=== PATIENT | female | born 1935 | race Caucasian/White ===

== ENCOUNTER 2017-08-14 11:54 | Emergency (ER) | payer MEDICARE, OTHER ==
--- NOTE | 2017-08-14 12:30 | ED Physician Documentation ---
PD HPI CHEST PAIN - Stated complaint Stated Complaint: CHEST PX/SOA - Chief complaint Chief Complaint: Cardiac - History obtained from History obtained from: Patient, Family - History of Present Illness Timing - onset: How many weeks ago (2) Timing - onset during: Rest Timing - duration: Weeks (2) Timing - details: Gradual onset, Still present, Waxing and waning Quality: Pressure, Tightness Location: Substernal Radiation: Back Improved by: Rest Worsened by: Inspiration, Movement, Palpation Associated symptoms: General Weakness, Cough. No: Shortness of air, Diaphoresis , Nausea, Vomiting, Feeling faint / dizzy, Palpitations Similar symptoms before: Has not had sx before Recently seen: Not recently seen - Additional information Additional information: 82-year-old female began to have some signs and symptoms Of chest wall pain radiating to her back about 2 weeks ago she states that the pain is worse in the morning when she wakes up and when she is up and moving around her pain improves a bit. She wakes up in the morning with muscle stiffness. In the evening she does not have stiffness. She takes her statin before she goes to bed and she is stiff when she wakes up in the morning. She has had an increase in her cough but she has not had an increase in the amount of type of phlegm that she is coughing up and she has not had fever chills sweats nausea vomiting or lightheadedness. Review of Systems Constitutional: reports: Myalgias, Fatigue. denies: Fever, Chills Eyes: denies: Decreased vision Ears: denies: Ear pain Nose: denies: Rhinorrhea / runny nose, Congestion Throat: denies: Sore throat Cardiac: reports: Chest pain / pressure. denies: Palpitations, Pedal edema, Calf pain Respiratory: reports: Dyspnea. denies: Cough GI: denies: Abdominal Pain, Nausea, Vomiting : denies: Dysuria, Frequency Skin: denies: Rash Musculoskeletal: reports: Back pain. denies: Neck pain, Extremity pain, Joint pain Neurologic: reports: Generalized weakness. denies: Focal weakness, Numbness PD PAST MEDICAL HISTORY - Present Medications Home Medications: Ambulatory Orders Medication Instructions Recorded Confirmed Atorvastatin [Lipitor] 40 mg PO DAILY 08/14/17 08/14/17 Metoprolol Succinate [Toprol Xl] 12.5 mg PO BID 08/14/17 08/14/17 - Allergies Allergies/Adverse Reactions: Allergies Allergy/AdvReac Type Severity Reaction Status Date / Time No Known Drug Allergies Allergy Verified 08/14/17 12:04 PD ED PE NORMAL - Vitals Vital signs reviewed: Yes (hypertensive) - General General: No acute distress, Well developed/nourished - HEENT HEENT: Atraumatic, PERRL, EOMI, Ears normal, Moist mucous membranes, Pharynx benign, Dentition benign - Neck Neck: Supple, no meningeal sign, No bony TTP - Cardiac Cardiac: RRR, No murmur - Respiratory Respiratory: No respiratory distress, Clear bilaterally, Other (Mild point tenderness to the anterior chest wall no specific tenderness of the posterior chest wall.) - Abdomen Abdomen: Soft, Non tender - Back Back: No CVA TTP, No spinal TTP - Derm Derm: Normal color, Warm and dry, No rash - Extremities Extremities: No deformity, No edema - Neuro Neuro: Alert and oriented X 3, drill presser 2-12 intact, No motor deficit, No sensory deficit, Normal speech - Psych Psych: Normal mood, Normal affect Results - Vitals Vitals: Vital Signs - 24 hr 08/14/17 08/14/17 08/14/17 11:57 12:00 13:30 Heart Rate 70 63 Respiratory 24 12 Rate Blood Pressure 165/62 H Blood Pressure 165/62 H [Left] Blood Pressure 165/72 H [Right] O2 Saturation 100 08/14/17 08/14/17 13:31 14:03 Heart Rate 60 66 Respiratory 20 17 Rate Blood Pressure 118/62 165/72 H Blood Pressure [Left] Blood Pressure [Right] O2 Saturation 97 97 Oxygen O2 Source Room air - EKG (time done) 1208 Rhythm: LAE Ischemia: Other (minimal ST elevation inferior. <0.05m V) Compare to prior EKG: Old EKG unavailable Computer interpretation: Agree with computer - Labs Labs: Laboratory Tests 08/14/17 08/14/17 08/14/17 12:45 13:00 13:00 WBC 6.0 RBC 4.02 L Hgb 13.0 Hct 38.0 MCV 94.5 MCH 32.5 H MCHC 34.4 RDW 13.4 Plt Count 229 MPV 7.4 L Neut # 3.9 Lymph # 1.1 L Curry # 0.8 Eos # 0.2 Baso # 0.1 Absolute Nucleated RBC 0.00 Nucleated RBC % 0.1 Sodium 135 Potassium 4.4 Chloride 94 L Carbon Dioxide 30 Anion Gap 11.0 BUN 12 Creatinine 0.7 Estimated GFR (MDRD) 80 L Glucose 87 Calcium 9.6 Total Bilirubin 0.5 AST 27 ALT 17 Alkaline Phosphatase 78 Total Creatine Kinase 54 CK-MB (CK-2) Troponin I Total Protein 7.7 Albumin 4.1 Globulin 3.6 Albumin/Globulin Ratio 1.1 Lipase 35 Urine Color YELLOW Urine Clarity CLEAR Urine pH 7.0 Ur Specific [place] 1.010 Urine Protein NEGATIVE Urine Glucose (UA) NEGATIVE Urine Ketones NEGATIVE Urine Occult Blood NEGATIVE Urine Nitrite NEGATIVE Urine Bilirubin NEGATIVE Urine Urobilinogen 0.2 (NORMAL) Ur Leukocyte Esterase NEGATIVE Ur Microscopic Review NOT INDICATED Urine Culture Comments NOT INDICATED 08/14/17 13:00 WBC RBC Hgb Hct MCV MCH MCHC RDW Plt Count MPV Neut # Lymph # Curry # Eos # Baso # Absolute Nucleated RBC Nucleated RBC % Sodium Potassium Chloride Carbon Dioxide Anion Gap BUN Creatinine Estimated GFR (MDRD) Glucose Calcium Total Bilirubin AST ALT Alkaline Phosphatase Total Creatine Kinase CK-MB (CK-2) 0.9 Troponin I < 0.04 Total Protein Albumin Globulin Albumin/Globulin Ratio Lipase Urine Color Urine Clarity Urine pH Ur Specific [place] Urine Protein Urine Glucose (UA) Urine Ketones Urine Occult Blood Urine Nitrite Urine Bilirubin Urine Urobilinogen Ur Leukocyte Esterase Ur Microscopic Review Urine Culture Comments - Rads (name of study) 2 view chest Radiology: Prelim report reviewed (Impression: No acute cardiopulmonary abnormality.), EMP read indepedently, See rad report Procedures - IVC sono (time) 1228 Bedside IVC sono: IVC measures (cm) (1.2), IVC collapsed c insp (cm) (complete) , Dehydration (mild) PD MEDICAL DECISION MAKING - ED course Complexity details: reviewed results, re-evaluated patient, considered differential, d/w patient, d/w family ED course: 82-year-old female with 2 weeks of chest wall pain and a sensation that is difficult for her to get a full deep breath. She has a history of hypercholesterolemia and has been on a statin for years. She has had to go off of a statin that she was on previously for leg cramping. She has been on this statin (lipitor) for about 1 year. Here in the emergency department her studies are normal she has normal CPK and normal troponin normal-appearing chest x-ray and she does not benefit much from the use of nebulized albuterol and ipratropium.I discussed the findings with the patient and have asked her to stop her Lipitor. Departure - Departure Disposition: 01 Home, Self Care Clinical Impression: Statin myopathy Condition: Stable Instructions: ED Weakness UKO Follow-Up: Braden Silva MD [Primary Care Provider] - Comments: Today studies of your heart were without evidence of a heart attack. We did find you are mildly dehydrated and we gave you some IV hydration. I am concerned that the findings of your pain in your back and chest and your general weakness are related to your statin. Stop taking your Lipitor for now and follow-up with your primary care doctor.
[2017-08-14] MEDS ORDERED: DEXAMETHASONE 10 MG/ML VIAL IVP STA (12:34)
[2017-08-14] MEDS ORDERED: SODIUM CHLORIDE 0.9% 1,000 ML IV ONE (12:34)
[2017-08-14] MEDS ORDERED: IPRATROPIUM/ALBUTEROL 3 ML NEB INH STA (12:35)
[2017-08-14] MEDS ORDERED: SODIUM CHLORIDE FLUSH 0.9% 10 ML SYRINGE IVP ONE (12:46)
[2017-08-14] MEDS ORDERED: DEXAMETHASONE 10 MG/ML VIAL ONE (12:48)
[2017-08-14 13:12] LABS: BASOPHILS # (AUTO) 0.1 10^3/uL (0.0-0.1); BASOPHILS % (AUTO) 1.2 %; EOSINOPHILS # (AUTO) 0.2 10^3/uL (0.0-0.7); EOSINOPHILS % (AUTO) 3.3 %; LYMPHOCYTES # (AUTO) 1.1 10^3/uL (1.5-3.5); LYMPHOCYTES % (AUTO) 17.7 %; MEAN CORPUSCULAR HEMOGLOBIN 32.5 pg (27.0-31.0); MEAN CORPUSCULAR HGB CONC 34.4 g/dL (32.0-36.0); MEAN CORPUSCULAR VOLUME 94.5 fL (81.0-99.0); MEAN PLATELET VOLUME 7.4 fL (7.9-10.8); MONOCYTES # (AUTO) 0.8 10^3/uL (0.0-1.0); MONOCYTES % (AUTO) 12.7 %; NEUTROPHILS # (AUTO) 3.9 10^3/uL (1.5-6.6); NEUTROPHILS % (AUTO) 65.1 %; NUCLEATED RED BLOOD CELLS AUTO 0.1 /100WBC; RED BLOOD COUNT 4.02 10^6/uL (4.20-5.40); RED CELL DISTRIBUTION WIDTH 13.4 % (12.0-15.0)
[2017-08-14 13:18] LABS: ALBUMIN/GLOBULIN RATIO 1.1 (1.0-2.2); BILIRUBIN,TOTAL 0.5 mg/dL (0.2-1.0); CALCIUM 9.6 mg/dL (8.5-10.3); CREATININE 0.7 mg/dL (0.4-1.0); POTASSIUM 4.4 mmol/L (3.5-5.0); TOTAL PROTEIN 7.7 g/dL (6.7-8.2)
[2017-08-14 13:22] LABS: BILIRUBIN,URINE NEGATIVE (NEGATIVE)
[2017-08-14 13:23] LABS: UA CHARGE (STRIP ONLY) YES; UR CULTURE IF IND NOT INDICATED
[2017-08-14 13:24] LABS: CREATINE KINASE MB 0.9 ng/mL (0.6-6.3); TROPONIN I < 0.04 ng/mL (<0.49)
--- NOTE | 2017-08-14 13:36 | XRAY Preliminary Report ---
Exam: XR CHEST 2 VIEW PA/LAT IMPRESSION: No acute cardiopulmonary abnormality. [facility] SITE ID: [id number]
--- NOTE | 2017-08-14 13:39 | XRAY Report ---
EXAM: CHEST RADIOGRAPHY EXAM DATE: 08/14/2017 01:13 PM. CLINICAL HISTORY: Chest pain soa. COMPARISON: 10/15/2010. TECHNIQUE: 2 views. FINDINGS: Lungs/Pleura: No focal opacities evident. No pleural effusion. No pneumothorax. Normal volumes. Mediastinum: The heart size is normal. There is mild aortic atherosclerosis and tortuosity of the aor ta. Other: There is an old mild wedging deformity at T10. Unchanged. IMPRESSION: No acute cardiopulmonary abnormality. [facility] Referring Provider Line: [phone] SITE ID: [id number]
[2017-08-14] MEDS ORDERED: IPRATROPIUM/ALBUTEROL 3 ML NEB INH ONE (13:40)
[2017-08-14 14:04] VITALS: BP 165/72
== END 2017-08-14 14:12 | disposition home or self-care (01) ==
LOC: ED 11:54
DX: G72.0 Drug-induced myopathy (principal); T46.6X5A Adverse effect of antihyperlipidemic and antiarteriosclerotic drugs, initial encounter; E86.0 Dehydration; R07.89 Other chest pain; E78.00 Pure hypercholesterolemia, unspecified
CPT/HCPCS: 36415; 71020; 80053; 81003; 82550; 82553; 83690; 84484; 85025; 93005; 94640; 99284; J7620; 81001; 87086

== ENCOUNTER 2017-08-24 15:20 | Outpatient (CLI) | payer MEDICARE, OTHER ==
--- NOTE | 2017-08-26 10:13 | Mammography Report ---
DIGITAL BILATERAL SCREENING MAMMOGRAM: 08/24/2017 COMPARISON STUDY: Mammogram 08/05/2015. INDICATION: Screening mammogram. TECHNIQUE: Routine CC and MLO projections were obtained of the breasts. FINDINGS: Parenchymal tissue within both breasts is extremely dense, which lowers the sensitivity of mammography; however, there are no dominant masses, suspicious microcalcifications, or secondary sig ns of malignancy. In comparison to the previous studies, there are no significant changes. There are stable postoperative changes of the right breast. IMPRESSION: No mammographic evidence of malignancy. PLAN: Screening mammography is recommended annually. BIRADS CATEGORY 2 - BENIGN FINDINGS. STANDARD QUALIFYING STATEMENTS 1. This examination was reviewed with the aid of Computed-Aided Detection (CAD). 2. A negative or benign imaging report should not delay biopsy if clinically suspicious findings are present. Consider surgical consultation if warranted. More than 5% of cancers are not identified by i maging. 3. Dense breasts may obscure an underlying neoplasm. JOB #: [id number] EXT JOB #:[id number]
== END 2017-08-24 15:21 | disposition home or self-care (01) ==
LOC: DI 15:20
PROVIDERS: ATTEND Family Medicine
DX: Z12.31 Encounter for screening mammogram for malignant neoplasm of breast (principal)
CPT/HCPCS: 77067

== ENCOUNTER 2018-06-07 15:50 | Outpatient (CLI) | payer MEDICARE, OTHER ==
[2018-06-07 18:48] LABS: BASOPHILS % (AUTO) 1.1 %; EOSINOPHILS # (AUTO) 0.2 10^3/uL (0.0-0.7); EOSINOPHILS % (AUTO) 3.6 %; HGB - HEMOGLOBIN 12.5 g/dL (12.0-16.0); LYMPHOCYTES # (AUTO) 1.3 10^3/uL (1.5-3.5); LYMPHOCYTES % (AUTO) 29.8 %; MEAN CORPUSCULAR HEMOGLOBIN 32.5 pg (27.0-31.0); MEAN CORPUSCULAR HGB CONC 34.2 g/dL (32.0-36.0); MEAN PLATELET VOLUME 8.2 fL (7.9-10.8); MONOCYTES # (AUTO) 0.5 10^3/uL (0.0-1.0); NEUTROPHILS # (AUTO) 2.4 10^3/uL (1.5-6.6); NEUTROPHILS % (AUTO) 53.5 %; PLT - PLATELET COUNT 233 10^3/uL (130-450); RED BLOOD COUNT 3.84 10^6/uL (4.20-5.40); RED CELL DISTRIBUTION WIDTH 13.6 % (12.0-15.0); WHITE BLOOD COUNT 4.5 x10^3/uL (4.8-10.8)
[2018-06-07 19:25] LABS: % IRON SATURATION 23 % (20-50); ALBUMIN 3.7 g/dL (3.2-5.5); ALBUMIN/GLOBULIN RATIO 1.2 (1.0-2.2); ALKALINE PHOSPHATASE 58 IU/L (42-121); ALT ALANINE AMINOTRANSFERASE 16 IU/L (10-60); AST ASPARTATE AMINOTRANSFERASE 27 IU/L (10-42); BILIRUBIN,TOTAL 0.8 mg/dL (0.2-1.0); BUN - BLOOD UREA NITROGEN 10 mg/dL (6-20); CALCIUM 9.4 mg/dL (8.5-10.3); CARBON DIOXIDE - CO2 30 mmol/L (21-32); CHLORIDE 96 mmol/L (101-111); CHOL/HDL RATIO 5.5 (<4.4); CHOLESTEROL 395 mg/dL; CREATININE 0.6 mg/dL (0.4-1.0); GFR - MDRD 95 (>89); GLUCOSE 89 mg/dL (70-100); HDL CHOLESTEROL 72 mg/dL; IRON 85 ug/dL (28-170); LDL CHOLESTEROL,CALCULATED 312 mg/dL; LDL/HDL RATIO 4.3 (<4.4); SODIUM 133 mmol/L (135-145); TOTAL IRON BINDING CAPACITY 367 ug/dL (250-450); TOTAL PROTEIN 6.9 g/dL (6.7-8.2); TRANSFERRIN 262 mg/dL (192-382); VLDL CHOLESTEROL 11 mg/dL
== END 2018-06-07 15:51 | disposition home or self-care (01) ==
LOC: LAB.WCP 15:50
PROVIDERS: ATTEND Physician Assistant
DX: R53.83 Other fatigue (principal); E78.4 Other hyperlipidemia
CPT/HCPCS: 36415; 80053; 80061; 83540; 83721; 84466; 85025; 85651

== ENCOUNTER 2018-08-14 22:56 | Inpatient (IN) | payer MEDICARE, OTHER ==
[2018-08-14] MEDS ORDERED: ASPIRIN CHEW 81 MG TABLET PO STA (23:14)
[2018-08-14] MEDS ORDERED: NITROGLYCERIN SL 0.4 MG TABLET SL STA (23:14)
--- NOTE | 2018-08-14 23:18 | ED Physician Documentation ---
PD HPI CHEST PAIN - Stated complaint Stated Complaint: CHEST PAIN - Chief complaint Chief Complaint: Cardiac - History obtained from History obtained from: Patient - History of Present Illness Timing - onset: How many hours ago (2) Timing - onset during: Rest Timing - duration: Hours (2) Timing - details: Still present Pain level max: 6 Pain level now: 6 Quality: Dull Location: Substernal Worsened by: Other (nothing) Associated symptoms: Diaphoresis (brief). No: Shortness of air, Nausea, Vomiting Similar symptoms before: No diagnosis - Additional information Additional information: The patient is an 83-year-old female who complains of substernal chest pain that started about 2 hours prior to arrival while at rest, watching TV. She describes it as a dull pain that has persisted, without variation. She rates it at 6 out of 10 in severity. She denies associated shortness of breath, nausea or vomiting. She did have a brief episode of "feeling very warm." She also reports mid abdominal cramping pain. She took Tums, without relief. She reports history of similar but less severe pain intermittently in the past. Past medical history is significant for hypertension and for hyperlipidemia. She does not have diabetes and has not smoked cigarettes for over 55 years. There is family history of coronary artery disease, but not personal history. Past surgical history is significant for exploratory laparotomy 60 years ago. She is status post oophorectomy for ovarian cyst. Review of Systems Constitutional: denies: Fever, Fatigue Ears: denies: Tinnitus/ringing Nose: denies: Congestion Throat: denies: Sore throat Cardiac: reports: Chest pain / pressure. denies: Palpitations Respiratory: denies: Dyspnea, Cough GI: reports: Abdominal Pain. denies: Nausea, Vomiting : denies: Dysuria Skin: denies: Rash Musculoskeletal: denies: Back pain, Extremity swelling Neurologic: denies: Focal weakness, Numbness, Headache PD PAST MEDICAL HISTORY - Past Medical History Cardiovascular: Hypertension, High cholesterol Respiratory: None Endocrine/Autoimmune: HyPOthyroidism - Present Medications Home Medications: Ambulatory Orders Medication Instructions Recorded Confirmed Atorvastatin [Lipitor] 40 mg PO DAILY 08/14/17 08/14/17 Metoprolol Succinate [Toprol Xl] 12.5 mg PO BID 08/14/17 08/14/17 Levothyroxine Sodium [Synthroid] 50 mcg PO QDAC 08/14/18 08/14/18 - Allergies Allergies/Adverse Reactions: Allergies Allergy/AdvReac Type Severity Reaction Status Date / Time No Known Drug Allergies Allergy Verified 08/14/18 23:26 - Living Situation Living Situation: reports: With spouse/s.o. - Social History Does the pt smoke?: No Smoking Status: Former smoker (Quit 55 years ago.) PD ED PE NORMAL - Vitals Vital signs reviewed: Yes (hypertensive) - General General: Alert and oriented X 3, Well developed/nourished - HEENT HEENT: Atraumatic, Pharynx benign - Neck Neck: No adenopathy, No JVD - Cardiac Cardiac: RRR - Respiratory Respiratory: No respiratory distress, Clear bilaterally - Abdomen Abdomen: Soft, Other (Mild, diffuse tenderness, without rebound or guarding.) - Back Back: No CVA TTP - Derm Derm: No rash - Extremities Extremities: No edema, No calf tenderness / cord - Neuro Neuro: Alert and oriented X 3, No motor deficit, Normal speech Results - Vitals Vitals: Vital Signs - 24 hr 08/14/18 08/14/18 08/14/18 23:03 23:23 23:28 Temperature 36.5 C Heart Rate 65 68 71 Respiratory 18 29 H 26 H Rate Blood Pressure 174/86 H 165/68 H 104/63 O2 Saturation 99 96 95 08/14/18 08/14/18 08/15/18 23:31 23:49 00:12 Temperature Heart Rate 51 L 59 L 92 Respiratory 23 20 96 H Rate Blood Pressure 81/54 L 138/66 H 150/62 H O2 Saturation 94 94 08/15/18 01:23 Temperature Heart Rate 92 Respiratory 20 Rate Blood Pressure 144/56 H O2 Saturation 92 Oxygen O2 Source Room air - EKG (time done) 23:05 Rate: Rate (enter#) (61) Rhythm: NSR, LAE [place]: Normal Intervals: Normal NH QRS: Normal Ischemia: Other (Minimal ST elevation, <1mm, in inferior lead II.) Compare to prior EKG: Unchanged from prior EKG Computer interpretation: Agree with computer - Labs Labs: Laboratory Tests 08/14/18 08/14/18 08/14/18 23:36 23:36 23:36 WBC 4.4 L RBC 3.84 L Hgb 12.7 Hct 36.4 L MCV 94.8 MCH 33.1 H MCHC 34.9 RDW 14.1 Plt Count 183 MPV 7.8 L Neut # (Auto) 2.5 Lymph # (Auto) 1.0 L [place] # (Auto) 0.6 Eos # (Auto) 0.2 Baso # (Auto) 0.0 Absolute Nucleated RBC 0.00 Nucleated RBC % 0.1 Sodium 132 L Potassium 4.4 Chloride 94 L Carbon Dioxide 31 Anion Gap 7.0 BUN 22 H Creatinine 0.7 Estimated GFR (MDRD) 80 L Glucose 101 H Lactic Acid Calcium 9.2 Total Bilirubin 0.8 AST 46 H ALT 32 Alkaline Phosphatase 72 Troponin I < 0.04 Total Protein 7.0 Albumin 3.8 Globulin 3.2 Albumin/Globulin Ratio 1.2 Lipase 36 08/15/18 02:10 WBC RBC Hgb Hct MCV MCH MCHC RDW Plt Count MPV Neut # (Auto) Lymph # (Auto) [place] # (Auto) Eos # (Auto) Baso # (Auto) Absolute Nucleated RBC Nucleated RBC % Sodium Potassium Chloride Carbon Dioxide Anion Gap BUN Creatinine Estimated GFR (MDRD) Glucose Lactic Acid 0.6 Calcium Total Bilirubin AST ALT Alkaline Phosphatase Troponin I Total Protein Albumin Globulin Albumin/Globulin Ratio Lipase - Rads (name of study) CXR Radiology: Prelim report reviewed, EMP read contemporaneously, See rad report (Moderate thoracic aortic calcification. No acute findings are seen.) CT abd/pelvis Radiology: Prelim report reviewed, EMP read contemporaneously, See rad report (1) High-grade, possibly closed loop small bowel obstruction in the pelvis complicated by quite edematous, hypoenhancing, and likely ischemic segment of small bowel in the left pelvis. Moderate adjacent mesenteric edema. Surgical consultation suggested. 2)Moderate atherosclerotic disease of the aorta and branches. This includes severe coronary calcifications. 3) Colonic diverticulosis.) PD MEDICAL DECISION MAKING - ED course Complexity details: reviewed old records, reviewed results, re-evaluated patient, considered differential, d/w patient, d/w family, d/w literacy consultant ED course: The patient's presentation is significant for small bowel obstruction, with likely closed loop. She initially presented with substernal chest pain, so initial workup centered around the possibility of ischemic heart disease. However there was no acute abnormality detected on electrocardiogram, and troponin was normal. Treatment was initiated with 4 baby aspirin and 1 sublingual nitroglycerin. After the administration of nitroglycerin the patient's blood pressure dropped to 80 systolic. Normal saline 250 mL bolus was administered IV, and her blood pressure quickly normalized. On repeated examinations she continued to complain predominantly of abdominal pain. Her abdominal exam revealed diffuse abdominal tenderness without focal tenderness. CT scan of the abdomen and pelvis was performed, revealing high-grade small bowel obstruction with likely closed loop. Radiologist suggests the possibility of ischemic segment. I discussed her condition with Dr. Verdin, general surgeon, who evaluated her in the Emergency Department, and plans surgical intervention. I discussed her condition with Dr. Patel, who accepts her for hospitalist admission. Departure - Departure Disposition: [facility] DC/Xfer Clinical Impression: Small bowel obstruction Condition: Stable Discharge Date/Time: 08/15/18 04:06
[2018-08-14] MEDS ORDERED: SODIUM CHLORIDE 0.9% 250 ML IV ONE (23:34)
[2018-08-14 23:39] LABS: BASOPHILS % (AUTO) 1.1 %; EOSINOPHILS # (AUTO) 0.2 10^3/uL (0.0-0.7); EOSINOPHILS % (AUTO) 3.6 %; HGB - HEMOGLOBIN 12.7 g/dL (12.0-16.0); LYMPHOCYTES % (AUTO) 23.3 %; MEAN CORPUSCULAR HEMOGLOBIN 33.1 pg (27.0-31.0); MEAN CORPUSCULAR HGB CONC 34.9 g/dL (32.0-36.0); MEAN CORPUSCULAR VOLUME 94.8 fL (81.0-99.0); MEAN PLATELET VOLUME 7.8 fL (7.9-10.8); MONOCYTES # (AUTO) 0.6 10^3/uL (0.0-1.0); MONOCYTES % (AUTO) 14.2 %; NEUTROPHILS # (AUTO) 2.5 10^3/uL (1.5-6.6); NEUTROPHILS % (AUTO) 57.8 %; PLT - PLATELET COUNT 183 10^3/uL (130-450); RED BLOOD COUNT 3.84 10^6/uL (4.20-5.40); RED CELL DISTRIBUTION WIDTH 14.1 % (12.0-15.0); WHITE BLOOD COUNT 4.4 x10^3/uL (4.8-10.8)
[2018-08-14 23:48] LABS: ALBUMIN 3.8 g/dL (3.2-5.5); ALBUMIN/GLOBULIN RATIO 1.2 (1.0-2.2); BILIRUBIN,TOTAL 0.8 mg/dL (0.2-1.0); CALCIUM 9.2 mg/dL (8.5-10.3); CREATININE 0.7 mg/dL (0.4-1.0)
--- NOTE | 2018-08-15 00:12 | XRAY Report ---
Reason: chest pain Procedure Date: 08/15/2018 Accession Number: [id number] / [id number] Procedure: XR - Chest 1 View X-Ray CPT Code: 66173 FULL RESULT: EXAM: CHEST RADIOGRAPHY EXAM DATE: 08/14/2018 11:54 PM. CLINICAL HISTORY: Chest pain. COMPARISON: CHEST 2 VIEW PA/LAT 08/14/2017 12:52 PM. TECHNIQUE: 1 view. FINDINGS: Lungs/Pleura: No focal opacities evident. No pleural effusion. No pneumothorax. Mediastinum: Within exam limitations, the cardiomediastinal contour is normal. Other: Moderate thoracic aortic calcification. Heterogeneous coarse calcifications seen at the right breast soft tissue. IMPRESSION: No acute findings are seen. See above. [facility]
[2018-08-15] MEDS ORDERED: SODIUM CHLORIDE 0.9% 1,000 ML IV ONE (00:32)
[2018-08-15] MEDS ORDERED: IOPAMIDOL-300 100 ML VIAL ONE (00:43)
[2018-08-15] MEDS ORDERED: IOPAMIDOL-300 100 ML VIAL IVP ONE (01:26)
--- NOTE | 2018-08-15 01:52 | CT Report ---
Reason: abdominal pain Procedure Date: 08/15/2018 Accession Number: [id number] / [id number] Procedure: CT - Abdomen/Pelvis W/ CPT Code: FULL RESULT: EXAM: CT ABDOMEN AND PELVIS EXAM DATE: 08/15/2018 01:37 AM. CLINICAL HISTORY: Abdominal pain. COMPARISONS: None. TECHNIQUE: Routine helical CT imaging was performed through the abdomen and pelvis. IV contrast: 100 mL Isovue 300. Enteric contrast: No. Reconstructions: Coronal and sagittal. In accordance with CT protocol optimization, one or more of the following dose reduction techniques were utilized for this exam: automated exposure control, adjustment of mA and/or KV based on patient size, or use of iterative reconstructive technique. FINDINGS: Lung Bases: No acute abnormality seen. Severe coronary calcifications. Liver: Unremarkable. No suspicious masses. Gallbladder/Bile Ducts: Unremarkable. Spleen: Unremarkable. Pancreas: Unremarkable. Adrenal Glands: Unremarkable. Kidneys: Unremarkable. No suspicious masses or hydronephrosis. Peritoneal Cavity/Bowel: Mid small bowel obstruction, likely closed loop, with transition in the deep pelvis, probably due to adhesions. There is a segment of hypoenhancing quite thick-walled and edematous segment of small bowel in the left pelvis on axial images 61 through 69. Moderate mesenteric edema adjacent to the dilated loops of proximal bowel. No gross bowel wall thickening or free air. Colonic diverticulosis. Pelvic Organs: Bladder, uterus, and adnexa appear unremarkable. Vasculature: Moderate atherosclerotic disease of the aorta and branches. No aneurysm seen. Bones: No acute abnormality seen. Mild lower thoracic and upper lumbar compression deformities appear old. Other: None. IMPRESSION: 1. High-grade, possibly closed loop small bowel obstruction in the pelvis complicated by a quite edematous, hypoenhancing, and likely ischemic segment of small bowel in the left pelvis. Moderate adjacent mesenteric edema. Surgical consultation suggested. 2. Moderate atherosclerotic disease of the aorta and branches. This includes severe coronary calcifications. 3. Colonic diverticulosis. [facility] The above findings were discussed with Eduardo Potter by Dr. Enrique Crump at 01:50 hrs on 08/15/18.
[2018-08-15] MEDS ORDERED: oxyCODONE 5 MG TABLET PO PRN ×2 (02:26)
[2018-08-15] MEDS ORDERED: PROMETHAZINE 25 MG/1 ML VIAL IM PRN (02:26)
[2018-08-15] MEDS ORDERED: PROCHLORPERAZINE 10 MG/2 ML VIAL IVP PRN (02:26)
[2018-08-15] MEDS ORDERED: ONDANSETRON 4 MG/2 ML VIAL IVP PRN (02:26)
[2018-08-15] MEDS ORDERED: SODIUM CHLORIDE FLUSH 0.9% 10 ML SYRINGE IVP PRN (02:26)
[2018-08-15] MEDS ORDERED: ACETAMINOPHEN 325 MG TABLET PO PRN (02:26)
--- NOTE | 2018-08-15 02:33 | HISTORY & PHYSICAL EXAMINATION ---
Chief Complaint - Chief Complaint Chief Complaint: Abdominal pain History of Present Illness - Admitted From Admitted From:: Emergency Department - History Obtained From Records Reviewed: Yes History obtained from: Patient Exam Limitations: None - History of Present Illness HPI Comment/Other: The patient is a very pleasant 83-year-old female with a past medical history significant for hypertension, hypothyroidism and hyperlipidemia who presented to the emergency department with a chief complaint of abdominal pain. The patient states that she was in her normal state of health until around 8 PM this evening when all of a sudden she began feeling cramps in her lower abdomen. She states that her abdomen felt bloated and that the pain then made its way up into the right upper quadrant and then in the epigastric area. The patient states that she had just been reading about heart attacks in a book she got from the [facility] and once the pain made its way up into the epigastric area she became concerned that she might be having a heart attack and came to the emergency department. The patient states the pain was about a 7 out of 10 and was associated with some nausea. She describes it as a cramping pain. It persisted for about 2 hours and was gradually worsening to the point when she finally decided to come to the emergency department. The patient states that she had a small bowel movement earlier in the day. She also states that she ate her dinner at around 4 PM but thinking back she states that she did not eat as much as she usually does because she says that she just did not have her normal radha etite. The patient denies any fevers or chills. She denies any shortness of breath. The patient denies vomiting. Patient denies any headaches, blurred vision, runny nose, sore throat, nasal congestion, difficulty swallowing, orthopnea, PND, increased lower extremity swelling, urinary urgency, urinary frequency, dysuria, joint pain, joint swelling, muscle aches, back pain, neck stiffness, recent unintentional weight loss, night sweats, skin rash, hair loss, skin changes, polyuria, polydipsia, or any focal neurologic deficits. On presentation to the emergency department the patient was in considerable distress secondary to abdominal pain. She was afebrile but she was hypertensive and tachypneic. She was saturating well on room air. The patient underwent routine lab work which showed a mild leukopenia and mild hyponatremia as well as a mildly elevated AST but was otherwise unremarkable. The patient's troponin was less than 0.04 and her lactic acid was 0.6. The patient underwent a chest x-ray which revealed no acute findings. The patient also had an EKG done in the emergency department which showed a normal sinus rhythm without any ST elevations or ischemic changes. Given the patient's persistent abdominal pain the patient was sent for a CT of her abdomen which showed a high-grade, possibly closed loop small bowel obstruction in the pelvis complicated by an edematous, h ypoenhancing and likely ischemic segment of small bowel in the left pelvis. There was also moderate adjacent mesenteric edema. The patient's CT also showed moderate atherosclerotic disease of the aorta and branches as well as severe coronary calcifications with finding of colonic diverticulosis. The emergency room physician spoke with the surgeon installation & maintenance executive Dr. Greg Verdin who asked that the hospitalist team admit the patient given her age and chronic medical issues. The surgeon did see the patient in the emergency department and after reviewing the CT scan decided to take her straight to the operating room for an exploratory laparotomy and repair of this small bowel obstruction. The patient will be admitted postop. 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 Social History Notes: The patient lives with her spouse in [place]. She has been living in [place] for 45 years. She was born in [place]. This is her second marriage and she has never had any children. 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 She smoked for a short period of time in her 20s but was n ever a heavy smoker. She denies any alcohol or drug use. - POLST Patient has POLST: No POLST Status: Full Code Meds/Allgy - Home Medications Home Medications: Ambulatory Orders Medication Instructions Recorded Confirmed Atorvastatin [Lipitor] 40 mg PO DAILY 08/14/17 08/14/17 Metoprolol Succinate [Toprol Xl] 12.5 mg PO BID 08/14/17 08/14/17 Levothyroxine Sodium [Synthroid] 50 mcg PO QDAC 08/14/18 08/14/18 - Allergies Allergies/Adverse Reactions: Allergies Allergy/AdvReac Type Severity Reaction Status Date / Time No Known Drug Allergies Allergy Verified 08/14/18 23:26 Review of Systems - Other Findings Other Findings: A comprehensive review of systems was performed the pertinent positives and negatives are stated above in the HPI and the remainder of the review of systems is negative. Prior Level of Functionality: Patient is completely independent with all her activities of daily living. She lives with her and ambulates without any assistance device. Exam - Vital Signs Reviewed Vital Signs: Yes Vital Signs: Vital Signs x48h Temp Pulse Resp BP Pulse Ox 08/14/18 23:49 59 L 20 138/66 H 94 08/14/18 23:31 51 L 23 81/54 L 94 08/14/18 23:28 71 26 H 104/63 95 08/14/18 23:23 68 29 H 165/68 H 96 08/14/18 23:03 36.5 C 65 18 174/86 H 99 - Physical Exam General Appearance: positive: Alert, Mild distress (Secondary to abdominal pain) Eyes Bilateral: positive: Normal inspection, PERRL, EOMI, No lid inflammation, Conjunctivae nml, No scleral icterus ENT: positive: ENT inspection nml, Pharynx nml, Dry mucous membranes. negative: Purulent nasal drainage, Pharyngeal erythema, Oral lesions Neck: positive: Nml inspection, Thyroid nml, No JVD, Trachea midline Respiratory: positive: Chest non-tender, No respiratory distress, Breath sounds nml Cardiovascular: positive: Regular rate & rhythm, No murmur, No gallop Peripheral Pulses: positive: 2+ Abdomen: positive: No organomegaly, Nml bowel sounds, Tenderness (Diffusely tender, soft, distended without peritoneal signs.), Abnml bowel sounds (Decreased bowel tones). negative: Guarding, Rebound, Hepatomegaly Back: positive: Nml inspection. negative: CVA tenderness (R), CVA tenderness (L) Skin: positive: Color nml, No rash, Warm, Dry. negative: Cyanosis, Diaphoresis, Pallor Extremities: positive: Non-tender, Full ROM, Nml appearance, No pedal edema Neurologic/Psychiatric: positive: Oriented x3, CN's nml (2-12), Motor nml, Sensation nml, Mood/affect nml Conclusion/Plan - Problem List (1) Small bowel obstruction Conclusion/Plan: The patient presented with abdominal pain which initially started in the lower abdomen and then made its way up to the upper abdomen. The patient had associated nausea. Patient underwent CT of her abdomen and pelvis which revealed high-grade, possibly closed loop small bowel obstruction in the pelvis complicated by a quite edematous, hypoenhancing, and likely ischemic segment of small bowel in the left pelvis. There was also moderate adjacent mesenteric edema. Surgery was consulted in the emergency department and We will take the patient to the OR for an exploratory lap given the high-grade obstruction. They have asked that we admit the patient postop. The patient has no history of ischemic heart disease, congestive heart failure, cerebrovascular disease, diabetes or chronic kidney disease. The patient does have coronary calcifications on the CT and strong family history of CAD and severe hyperlipidemia but she has never had an NC and EKG and trop were negative on presentation. With a 0.4%According to the revised cardiac risk index for preoperative risk the patient has a class I risk risk of major cardiac event. Plan: OR for surgical repair of high-grade small bowel obstruction with exploratory lap IV fluids IV antiemetics IV pain medication (2) Hypertension Conclusion/Plan: Patient has a history of hypertension and is on metoprolol at home. The patient's blood pressure was elevated on presentation to the emergency department. The blood pressure did improve once the patient's pain was better controlled. Likely the patient's initial elevation of blood pressure was due to pain. Plan: Place patient on metoprolol 5 mg IV every 6 hours as needed for hypertension Qualifiers: Hypertension type: essential hypertension Qualified Code(s): I10 - Essential (primary) hypertension (3) Hypothyroidism Conclusion/Plan: The patient has a history of hypothyroidism and takes Synthroid at home. We will hold the Synthroid while patient is n.p.o. postop. We will check a TSH in the morning. Qualifiers: Hypothyroidism type: unspecified Qualified Code(s): E03.9 - Hypothyroidism, unspecified (4) Hyperlipidemia Conclusion/Plan: The patient has a history of hyperlipidemia and is on a statin at home. We will hold the statin if the patient has to be strictly n.p.o. after surgery. Qualifiers: Hyperlipidemia type: unspecified Qualified Code(s): E78.5 - Hyperlipidemia, unspecified - Lab Results Lab results reviewed: Yes Fish Bones: 08/14/18 23:36 08/14/18 23:36 Other Lab Results: Laboratory Results WBC 4.4 x10^3/uL (4.8-10.8) L 08/14/18 23:36 RBC 3.84 10^6/uL (4.20-5.40) L 08/14/18 23:36 Hgb 12.7 g/dL (12.0-16.0) 08/14/18 23:36 Hct 36.4 % (37.0-47.0) L 08/14/18 23:36 MCV 94.8 fL (81.0-99.0) 08/14/18 23:36 MCH 33.1 pg (27.0-31.0) H 08/14/18 23:36 MCHC 34.9 g/dL (32.0-36.0) 08/14/18 23:36 RDW 14.1 % (12.0-15.0) 08/14/18 23:36 Plt Count 183 10^3/uL (130-450) 08/14/18 23:36 MPV 7.8 fL (7.9-10.8) L 08/14/18 23:36 Neut # (Auto) 2.5 10^3/uL (1.5-6.6) 08/14/18 23:36 Lymph # (Auto) 1.0 10^3/uL (1.5-3.5) L 08/14/18 23:36 Hart # (Auto) 0.6 10^3/uL (0.0-1.0) 08/14/18 23:36 Eos # (Auto) 0.2 10^3/uL (0.0-0.7) 08/14/18 23:36 Baso # (Auto) 0.0 10^3/uL (0.0-0.1) 08/14/18 23:36 Absolute Nucleated RBC 0.00 x10^3/uL 08/14/18 23:36 Nucleated RBC % 0.1 /100WBC 08/14/18 23:36 Sodium 132 mmol/L (135-145) L 08/14/18 23:36 Potassium 4.4 mmol/L (3.5-5.0) 08/14/18 23:36 Chloride 94 mmol/L (101-111) L 08/14/18 23:36 Carbon Dioxide 31 mmol/L (21-32) 08/14/18 23:36 Anion Gap 7.0 (6-13) 08/14/18 23:36 BUN 22 mg/dL (6-20) H 08/14/18 23:36 Creatinine 0.7 mg/dL (0.4-1.0) 08/14/18 23:36 Estimated GFR (MDRD) 80 (>89) L 08/14/18 23:36 Glucose 101 mg/dL (70-100) H 08/14/18 23:36 Lactic Acid 0.6 mmol/L (0.5-2.2) 08/15/18 02:10 Calcium 9.2 mg/dL (8.5-10.3) 08/14/18 23:36 Total Bilirubin 0.8 mg/dL (0.2-1.0) 08/14/18 23:36 AST 46 IU/L (10-42) H 08/14/18 23:36 ALT 32 IU/L (10-60) 08/14/18 23:36 Alkaline Phosphatase 72 IU/L (42-121) 08/14/18 23:36 Troponin I < 0.04 ng/mL (<0.49) 08/14/18 23:36 Total Protein 7.0 g/dL (6.7-8.2) 08/14/18 23:36 Albumin 3.8 g/dL (3.2-5.5) 08/14/18 23:36 Globulin 3.2 g/dL (2.1-4.2) 08/14/18 23:36 Albumin/Globulin Ratio 1.2 (1.0-2.2) 08/14/18 23:36 Lipase 36 U/L (22-51) 08/14/18 23:36 - Diagnostic Imaging Results Diagnostic Imaging Results: positive: Final report reviewed Diagnostic Imaging Results Comments: EXAM: [id number] XR/CXR1VW ([id number]) Reason: chest pain Procedure Date: 08/15/2018 Accession Number: [id number] / [id number] Procedure: XR - Chest 1 View X-Ray CPT Code: 15429 FULL RESULT: EXAM: CHEST RADIOGRAPHY EXAM DATE: 08/14/2018 11:54 PM. CLINICAL HISTORY: Chest pain. COMPARISON: CHEST 2 VIEW PA/LAT 08/14/2017 12:52 PM. TECHNIQUE: 1 view. FINDINGS: Lungs/Pleura: No focal opacities evident. No pleural effusion. No pneumothorax. Mediastinum: Within exam limitations, the cardiomediastinal contour is normal. Other: Moderate thoracic aortic calcification. Heterogeneous coarse calcifications seen at the right breast soft tissue. IMPRESSION: No acute findings are seen. See above. EXAM: [id number] CT/ABPEW ([id number]) Reason: abdominal pain Procedure Date: 08/15/2018 Accession Number: [id number] / [id number] Procedure: CT - Abdomen/Pelvis W/ CPT Code: FULL RESULT: EXAM: CT ABDOMEN AND PELVIS EXAM DATE: 08/15/2018 01:37 AM. CLINICAL HISTORY: Abdominal pain. COMPARISONS: None. TECHNIQUE: Routine helical CT imaging was performed through the abdomen and pelvis. IV contrast: 100 mL Isovue 300. Enteric contrast: No. Reconstructions: Coronal and sagittal. In accordance with CT protocol optimization, one or more of the following dose reduction techniques were utilized for this exam: automated exposure control, adjustment of mA and/or KV based on patient size, or use of iterative reconstructive technique. FINDINGS: Lung Bases: No acute abnormality seen. Severe coronary calcifications. Liver: Unremarkable. No suspicious masses. Gallbladder/Bile Ducts: Unremarkable. Spleen: Unremarkable. Pancreas: Unremarkable. Adrenal Glands: Unremarkable. Kidneys: Unremarkable. No suspicious masses or hydronephrosis. Peritoneal Cavity/Bowel: Mid small bowel obstruction, likely closed loop, with transition in the deep pelvis, probably due to adhesions. There is a segment of hypoenhancing quite thick-walled and edematous segment of small bowel in the left pelvis on axial images 61 through 69. Moderate mesenteric edema adjacent to the dilated loops of proximal bowel. No gross bowel wall thickening or free air. Colonic diverticulosis. Pelvic Organs: Bladder, uterus, and adnexa appear unremarkable. Vasculature: Moderate atherosclerotic disease of the aorta and branches. No aneurysm seen. Bones: No acute abnormality seen. Mild lower thoracic and upper lumbar compression deformities appear old. Other: None. IMPRESSION: 1. High-grade, possibly closed loop small bowel obstruction in the pelvis complicated by a quite edematous, hypoenhancing, and likely ischemic segment of small bowel in the left pelvis. Moderate adjacent mesenteric edema. Surgical consultation suggested. 2. Moderate atherosclerotic disease of the aorta and branches. This includes severe coronary calcifications. 3. Colonic diverticulosis. - EKG Results EKG Interpreted Independently: Yes EKG Findings: No ST elevations or ischemic changes noted on EKG. Core Measures - Anticipated LOS I expect patient to be DC'd or transferred within 96 hours.: Yes - DVT/VTE - Prophylaxis VTE/DVT Prophylaxis med ordered at admit?: Yes
[2018-08-15] MEDS ORDERED: MORPHINE 2 MG/ML CARPUJECT IVP STA (02:39)
[2018-08-15] MEDS ORDERED: METOPROLOL 5 MG/5 ML VIAL IVP PRN (03:19)
[2018-08-15] MEDS ORDERED: BUPIVACAINE 0.5%-EPI 1:200000 PF 30 ML VIAL ONE (03:42)
--- NOTE | 2018-08-15 03:47 | CONSULTATION NOTE ---
Referring Provider Name of Referring Provider:: Dr. Patel Consult Date: 08/15/18 Chief Complaint - Chief Complaint Chief Complaint: chest and abd pain History of Present Illness - Admitted From Admitted From:: ER - History Obtained From Records Reviewed: yes History obtained from: pt Exam Limitations: none - History of Present Illness HPI Comment/Other: 83 yo female with abrupt onset of lower chest and midepigastric pain at 2000 hours last night, a constant steady severe pain associated with nausea but no vomiting, no change in bowel habits, melena, BRBPR. No prior similar except when had her right ovary removed for an ovarian cyst at age 31 yrs. 5 # wt loss over past 6 months. Had been eating lots of almonds past few days. Prior surgeries include exploratory laparotomy and resection of a "benign tumor" age 19 yrs, and right oophorectomy with appendectomy for ovarian cyst age 31 yrs. No hx heartburn, dysphagia, PUD, or FH GI tumors. Last colonoscopy was done approx 10 yrs ago and reportedly was nl. Pain has persisted despite analgesics in the ER. Evaluation in the ER has included a nl CXR, ECG, troponin, and lactate, and an ABD/Pelvis CT which shows findings c/w closed loop SBO in pelvis: a thickened segment of small bowel with mesenteric edema; no evidence of infarction, free air or fluid or other abnormalities. Surgical consultation was requested. 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 Social History Notes: The patient lives with her spouse in [place]. She has been living in [place] for 45 years. She was born in [place]. This is her second marriage and she has never had any children. 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 She smoked for a short period of time in her 20s but was never a heavy smoker. She denies any alcohol or drug use. - Substance History Use: Uses substance without health or social issues: NONE - POLST Patient has POLST: No POLST Status: Full Code Meds/Allgy - Home Medications Home Medications: Ambulatory Orders Medication Instructions Recorded Confirmed Atorvastatin [Lipitor] 40 mg PO DAILY 08/14/17 08/14/17 Metoprolol Succinate [Toprol Xl] 12.5 mg PO BID 08/14/17 08/14/17 Levothyroxine Sodium [Synthroid] 50 mcg PO QDAC 08/14/18 08/14/18 - Allergies Allergies/Adverse Reactions: Allergies Allergy/AdvReac Type Severity Reaction Status Date / Time No Known Drug Allergies Allergy Verified 08/14/18 23:26 Review of Systems - Constitutional Constitutional: reports: Weight loss (5 lbs over past 6 months) - Cardiovascular Cariovascular: denies: Irregular heart rate, Palpitations, Syncope, Exertional dyspnea - Respiratory Respiratory: reports: Cough (mild chronic past 6 months) - Gastrointestinal Gastrointestinal: reports: Abdominal pain, Nausea. denies: Constipation, Diarrhea, Change in bowel habits, Rectal bleeding, Black stools, Bloody stools, Vomiting, Bile emesis, Gerald blood emesis, Coffee grounds emesis, Reflux/heartburn, Bloating, Poor appetite - Genitourinary Genitourinary: denies: Dysuria - Musculoskeletal Musculoskeletal: reports: Joint pain (mild; takes no meds for this) - Hematologic/Lymphatic Hematologic/Lymphatic: denies: Bruising, Petechiae, Blood clots, Bleeding tendencies - All Other Systems All Other Systems: reports: Reviewed and negative Exam - Vital Signs Reviewed Vital Signs: Yes Vital Signs: Vital Signs x48h Temp Pulse Resp BP Pulse Ox 08/15/18 02:34 72 20 145/79 H 92 08/15/18 01:23 92 20 144/56 H 92 08/15/18 00:12 92 96 H 150/62 H 08/14/18 23:49 59 L 20 138/66 H 94 08/14/18 23:31 51 L 23 81/54 L 94 08/14/18 23:28 71 26 H 104/63 95 08/14/18 23:23 68 29 H 165/68 H 96 08/14/18 23:03 36.5 C 65 18 174/86 H 99 - Physical Exam General Appearance: positive: Alert, Mild distress Eyes Bilateral: positive: Normal inspection, Conjunctivae nml, No scleral icterus ENT: positive: Dry mucous membranes Neck: positive: Nml inspection, Thyroid nml, No JVD, Trachea midline. negative: Thyromegaly, Lymphadenopathy (R), Lymphadenopathy (L) Respiratory: positive: Chest non-tender, No respiratory distress, Breath sounds nml. negative: Wheezes, Rales, Rhonchi Cardiovascular: positive: Regular rate & rhythm, No murmur, No gallop Abdomen: positive: Non-tender, No organomegaly, Abnml bowel sounds (hyperactive, tympanitic bowel sounds c/s SBO; mild distention; no peritoneal signs). negative: Hepatomegaly, Splenomegaly, Mass Skin: positive: Color nml, No rash, Warm, Dry. negative: Cyanosis Extremities: positive: Non-tender, Nml appearance, No pedal edema. negative: Calf tenderness Neurologic/Psychiatric: positive: Oriented x3 Conclusion/Plan - Diagnosis Diagnosis: Closed loop SBO, probably due to adhesions. No evidence of infarction or peritonitis at present. Medically stable and fit for surgery at this time per Dr. Patel's evaluation. - Plan Plan: Exploratory laparotomy, lysis of adhesions, possible small bowel resection. PAR conference held and risks of bleeding, infection, recurrence, cardiac, pulmonary oar renal complications, and discussed and consent obtained. Pt's was present for the evaluation. Surgery will performed as soon as it can be arranged. - Lab Results Lab results reviewed: Yes Fish Bones: 08/14/18 23:36 08/14/18 23:36 Other Lab Results: lfts, troponin, lactate, lipase nl except mild elevation of AST - Diagnostic Imaging Results Diagnostic Imaging Results: positive: Final report reviewed, Critical result, Read independently Diagnostic Imaging Results Comments: See HPI - EKG Results EKG Interpreted Independently: No EKG Findings: NSR without acute changes
[2018-08-15] MEDS ORDERED: LACTATED RINGERS 1,000 ML IV ONE ×3 (04:02→06:30)
--- NOTE | 2018-08-15 04:02 | ANESTHESIA ---
Pre-Anesthesia VS, & Labs - Diagnosis Diagnosis Closed loop SBO, probably due to adhesions. No evidence of infarction or peritonitis at present . Medically stable and fit for surgery at this time per Dr. Patel's evaluation. - Procedure explorarory laparotomy Vital Signs: Temp Pulse Resp BP Pulse Ox 36.5 C 72 20 145/79 H 92 08/14/18 23:03 08/15/18 02:34 08/15/18 02:34 08/15/18 02:34 08/15/18 02:34 Height 5 ft 2 in Weight (kg) 52.163 kg Body Mass Index 21.0 - NPO >8 hours - Is Patient ?: Not Applicable - Lab Results Current Lab Results: Laboratory Tests 08/15/18 02:10: Lactic Acid 0.6 08/14/18 23:36: Troponin I < 0.04 08/14/18 23:36: Sodium 132 L, Potassium 4.4, Chloride 94 L, Carbon Dioxide 31, Anion Gap 7.0, BUN 22 H, Creatinine 0.7, Estimated GFR (MDRD) 80 L, Glucose 101 H, Calcium 9.2, Total Bilirubin 0.8, AST 46 H, ALT 32, Alkaline Phosphatase 72, Total Protein 7.0, Albumin 3.8, Globulin 3.2, Albumin/Globulin Ratio 1.2, Lipase 36 08/14/18 23:36: WBC 4.4 L, RBC 3.84 L, Hgb 12.7, Hct 36.4 L, MCV 94.8, MCH 33.1 H, MCHC 34.9, RDW 14.1, Plt Count 183, MPV 7.8 L, Neut # (Auto) 2.5, Lymph # (Auto) 1.0 L, Labette # (Auto) 0.6, Eos # (Auto) 0.2, Baso # (Auto) 0.0, Absolute Nucleated RBC 0.00, Nucleated RBC % 0.1 Fish Bones: 08/14/18 23:36 08/14/18 23:36 Home Medications and Allergies Home Medications: Ambulatory Orders Levothyroxine Sodium [Synthroid] 50 mcg PO QDAC 08/14/18 Active Medications Acetaminophen (Tylenol) 650 mg PO Q4HR PRN PRN Reason: Pain 1 to 4 Enoxaparin Sodium (Lovenox) 40 mg SUBQ DAILY [facility] Sodium Chloride (Normal Saline 0.9%) 1,000 mls @ 250 mls/hr IV .Q4H ONE Stop: 08/15/18 04:31 Last Admin: 08/15/18 00:59 Dose: 250 mls/hr Famotidine (Pepcid 20 Mg/50 Ml) 50 mls @ 100 mls/hr IV BID [facility] Sodium Chloride (Normal Saline 0.9%) 1,000 mls @ 100 mls/hr IV .Q10H [facility] Metoprolol Tartrate (Lopressor Inj) 5 mg IVP Q6HR PRN PRN Reason: Blood pressure >160 systolic Morphine Sulfate (Morphine (Carpuject)) 2 mg IVP Q2HR PRN PRN Reason: Pain 8 to 10 Ondansetron HCl (Zofran Inj) 4 mg IVP Q6HR PRN PRN Reason: Nausea / Vomiting Oxycodone HCl (Roxicodone) 5 mg PO Q4HR PRN PRN Reason: Pain 5 to 7 Oxycodone HCl (Roxicodone) 10 mg PO Q4HR PRN PRN Reason: Pain 8 to 10 Polyethylene Glycol (Miralax) 17 gm PO DAILY [facility] Prochlorperazine Edisylate (Compazine Inj) 10 mg IVP Q6HR PRN PRN Reason: Nausea / Vomiting Promethazine HCl (Phenergan Inj) 25 mg IM Q6HR PRN PRN Reason: Nausea / Vomiting Sodium Chloride (Normal Saline Flush 0.9%) 10 ml IVP PRN PRN PRN Reason: NEEDED PER PROVIDER ORDERS Sodium Chloride (Normal Saline Flush 0.9%) 10 ml IVP 0100,0900,1700 [facility] Atorvastatin [Lipitor] 40 mg PO DAILY 08/14/17 Metoprolol Succinate [Toprol Xl] 12.5 mg PO BID 08/14/17 Levothyroxine Sodium [Synthroid] 50 mcg PO QDAC 08/14/18 Allergies/Adverse Reactions: Allergies Allergy/AdvReac Type Severity Reaction Status Date / Time No Known Drug Allergies Allergy Verified 08/14/18 23:26 Anes History & Medical History - Anesthetic History Anesthesia Complications: reports: Post-Operative Nausea/Vomiting Family history of Anesthesia Complications: Denies Family history of Malignant Hyperthermia: Denies - Medical History Cardiovascular: reports: Hypertension, High cholesterol Pulmonary: reports: COPD (chronic cough past 6 months; no inhalers or respiratory meds; remote minimal tobacco use) Gastrointestinal: reports: None Neuro: reports: None Endocrine/Autoimmune: reports: HyPOthyroidism Smoking Status: Former smoker (Quit 55 years ago.) - Surgical History General: Appendectomy (at time of oophorectomy age 31 yrs), Colonoscopy, Other (Ex Lap for tumor removal age 19 yrs) Gynecologic: Oophrectomy (right for cyst) Exam General: Alert, Oriented x3 Mouth Openin Fingerbreadth Neck Mobility: Reduced Mallampati classification: II Thyromental Distance: 4-6 cm Respiratory: Lungs clear, Normal breath sounds, No respiratory distress, No accessory muscle use Cardiovascular: Normal S1, Normal S2 Mental/Cognitive Status: Alert/Oriented X3, Normal for patient Cognitive Status: Within normal limits Plan Anesthesia Type: General Consent for Procedure(s) Verified and Reviewed: Yes Code Status: Attempt Resuscitation ASA classification: 2-Mild systemic disease Is this case an emergency?: Yes
[2018-08-15] MEDS ORDERED: BUPIVACAINE 0.5%-EPI 1:200000 PF 30 ML VIAL SUBQ ONE (04:40)
[2018-08-15] MEDS ORDERED: ROCURONIUM 50 MG/5 ML VIAL IVP ONE (05:05)
[2018-08-15] MEDS ORDERED: ePHEDrine 50 MG/ML AMP IVP ONE (05:05)
[2018-08-15] MEDS ORDERED: ACETAMINOPHEN 1,000 MG/100 ML 100 ML IV ONE ×2 (05:05→05:20)
[2018-08-15] MEDS ORDERED: LIDOCAINE-MPF 2% 5 ML VIAL IM ONE (05:05)
[2018-08-15] MEDS ORDERED: SUGAMMADEX 200 MG/2 ML VIAL IVP ONE ×2 (05:05→18:44)
[2018-08-15] MEDS ORDERED: PROPOFOL 200 MG/20 ML VIAL IVP ONE (05:05)
[2018-08-15] MEDS ORDERED: ONDANSETRON 4 MG/2 ML VIAL IVP ONE (05:05)
[2018-08-15] MEDS ORDERED: fentaNYL 100 MCG/2 ML VIAL IVP ONE (05:05)
--- NOTE | 2018-08-15 05:45 | OPERATIVE REPORT ---
Operative Report - General Admit Date: 08/15/18 Procedure Date: 08/15/18 Planned Procedure: Exploratory laparotomy, lysis of adhesions Pre-Op Diagnosis: Closed loop SBO Procedure Performed: Exploratory laparotomy with lysis of adhesions Post Op Diagnosis: Same - Procedure Note Primary Surgeon: Greg Verdin MD FACS Secondary Surgeon: none Anesthesia Provider: Randy Patiño MD Anesthesia Technique: General ET tube Pathology: None IV Fluids (mL): 900 Estimated Blood Loss (mL): 5 Urine Output (mL): 150 Complications: None - Other Other Information/Narrative: After informed consent patient was taken to the OR and placed under general endotracheal anesthesia by Dr. Patiño. Preop preparation included administration of 1 gm of cefoxitin IV within one hour of the incision, placement of NG and borja catheters, and application of sequential calf compression boots. Her abdomen was prepped with Cloraprep and draped in the usual sterile fashion. A lower midline incision was used to enter the peritoneal cavity. Hemostasis was achieved with electrocautery. Extensive adhesions between the omentum and the anterior abdominal wall were encountered and were lysed sharply or with electrocautery. An Alberto self retaining wound protector/retractor was inserted. The abdomen was explored with the findings of a solitary adhesive band between the omentum and the small bowel mesentery which created an internal hernia through which a loop of mid jejunum had herniated and become obstructed. This loop was edematous and hemorrhagic but otherwise was viable. The band was lysed and the small intestine examined in its entirety making sure there were no other sites of obstruction. The abdomen was explored further with the findings of an atrophic left ovary and uterus, an absent right ovary and appendix, with a normal appearing liver, gallbladder, stomach and remainder of the large bowel except for sigmoid colon diverticulosis. The abdominal cavity was copiously irrigated with sterile saline. A rent in the omentum that had been created with entry into the abdominal cavity was closed with continuous 3-0 Vicryl to potentially prevent another episode of internal hernia. Abdominal contents were returned to their usual anatomic position, the Alberto was removed, and wound closure carried out in layers, including continuous 0 Vicryl for the peritoneum and posterior rectus sheath, #1 PDS for the anterior rectus sheath and midline fascia, 3-0 Vicryl for the subcutaneous tissue, and skin roger. 30 cc of 0.5% bupivicaine with epinephrine was injected locally to assist with postop analgesia. Dry sterile dressing was applied, anesthesia was terminated and patient transferred to the recovery room in satisfactory condition. Sponge, needle and instrument counts were correct x 2 and no drains were used. Pt tolerated the procedure well with no apparent complications.
[2018-08-15] MEDS: fentaNYL 100 MCG/2 ML VIAL ONE ×2 (05:58→06:20)
[2018-08-15] MEDS ORDERED: NON FORMULARY MED (Levothyroxine Sodium [Synthroid] 50 MCG) PO SCH (07:00)
[2018-08-15] MEDS: SODIUM CHLORIDE 0.9% 1,000 ML IV SCH ×2 (07:23→14:31)
[2018-08-15] MEDS: MORPHINE 2 MG/ML CARPUJECT IVP PRN ×3 (07:59→21:28)
[2018-08-15] MEDS ORDERED: METOPROLOL SUCCINATE 25 MG TABLET PO SCH (09:00)
[2018-08-15] MEDS ORDERED: PNEUMOCOCCAL 13-VALENT CONJ 0.5 ML SYRINGE IM ONE (09:00)
[2018-08-15] MEDS ORDERED: ATORVASTATIN 10 MG TABLET PO SCH (09:00)
[2018-08-15] MEDS ORDERED: POLYETHYLENE GLYCOL 3350 17 GM PACKET PO SCH (09:00)
[2018-08-15] MEDS ORDERED: FAMOTIDINE 20 MG/50 ML 50 ML IV SCH (09:00)
[2018-08-15] MEDS ORDERED: ENOXAPARIN 40 MG/0.4 ML SYRINGE SUBQ SCH (09:00)
[2018-08-15] MEDS: FAMOTIDINE 20 MG/50 ML 50 ML IV SCH ×2 (09:15→21:22)
[2018-08-15] MEDS: SODIUM CHLORIDE FLUSH 0.9% 10 ML SYRINGE IVP SCH ×2 (13:04→19:11)
[2018-08-15] MEDS: ACETAMINOPHEN 1,000 MG/100 ML 100 ML IV SCH ×3 (13:08→23:58)
[2018-08-15] MEDS: ENOXAPARIN 40 MG/0.4 ML SYRINGE SUBQ SCH (19:10)
[2018-08-16] MEDS: SODIUM CHLORIDE FLUSH 0.9% 10 ML SYRINGE IVP SCH ×3 (00:03→23:02)
[2018-08-16] MEDS: SODIUM CHLORIDE 0.9% 1,000 ML IV SCH (01:45)
[2018-08-16 05:44] LABS: BASOPHILS # (AUTO) 0.1 10^3/uL (0.0-0.1); BASOPHILS % (AUTO) 0.7 %; EOSINOPHILS # (AUTO) 0.2 10^3/uL (0.0-0.7); EOSINOPHILS % (AUTO) 2.4 %; HGB - HEMOGLOBIN 11.2 g/dL (12.0-16.0); LYMPHOCYTES # (AUTO) 0.7 10^3/uL (1.5-3.5); LYMPHOCYTES % (AUTO) 9.6 %; MEAN CORPUSCULAR HEMOGLOBIN 32.8 pg (27.0-31.0); MEAN CORPUSCULAR HGB CONC 34.3 g/dL (32.0-36.0); MEAN CORPUSCULAR VOLUME 95.8 fL (81.0-99.0); MEAN PLATELET VOLUME 8.2 fL (7.9-10.8); MONOCYTES # (AUTO) 0.6 10^3/uL (0.0-1.0); NEUTROPHILS # (AUTO) 5.5 10^3/uL (1.5-6.6); NEUTROPHILS % (AUTO) 78.3 %; PLT - PLATELET COUNT 153 10^3/uL (130-450); RED BLOOD COUNT 3.41 10^6/uL (4.20-5.40); RED CELL DISTRIBUTION WIDTH 14.2 % (12.0-15.0)
[2018-08-16 06:02] LABS: ALBUMIN 2.7 g/dL (3.2-5.5); ALBUMIN/GLOBULIN RATIO 1.1 (1.0-2.2); BILIRUBIN,TOTAL 0.8 mg/dL (0.2-1.0); CREATININE 0.7 mg/dL (0.4-1.0); MAGNESIUM 1.7 mg/dL (1.7-2.8); PHOSPHORUS 3.5 mg/dL (2.5-4.6); TOTAL PROTEIN 5.1 g/dL (6.7-8.2)
[2018-08-16] MEDS: ACETAMINOPHEN 1,000 MG/100 ML 100 ML IV SCH ×3 (06:18→23:02)
[2018-08-16] MEDS: FAMOTIDINE 20 MG/50 ML 50 ML IV SCH ×2 (09:03→21:20)
[2018-08-16] MEDS: ENOXAPARIN 40 MG/0.4 ML SYRINGE SUBQ SCH (09:03)
--- NOTE | 2018-08-16 10:26 | PROVIDER PROGRESS NOTE ---
Subjective - General Admit Date: 08/15/18 Procedure Date: 08/15/18 Post Op Days: 1 Procedure Performed: Exp lap, KASSY - Review of Systems Wound/Incisions: positive: Dressing dry and intact General: positive: No symptoms HEENT: positive: Sore throat (from NG tube likely) Pulmonary: positive: Sputum (chronic, mild) Cardiovascular: positive: No symptoms Gastrointestinal: positive: Abdominal pain (minimal incisional; preop sx resolved), Flatus. negative: Nausea, Vomiting, Difficulty swallowing Genitourinary: positive: No symptoms Musculoskeletal: positive: No symptoms Psychiatric: positive: No symptoms Objective - Patient Data Reviewed Vital Signs: Yes Vital Signs: Vital Signs x48h Temp Pulse Resp BP Pulse Ox 08/16/18 07:59 36.7 C 83 20 152/60 H 98 Weight: Weight 08/14/18 08/15/18 08/16/18 23:59 23:59 23:59 Weight (kg) 52.163 kg 53 kg Intake & Output: Intake and Output Totals x24h 08/14/18 08/15/18 08/16/18 23:59 23:59 23:59 Intake Total 2496.667 801.666 Output Total 275 350 Balance 2221.667 451.666 NG output minimal; urine output ok. - Lab Results Lab Results: 08/16/18 05:00 08/16/18 05:00 Other Lab Results: Lab Results x24hrs 08/16/18 08/16/18 Range/Units 05:00 05:00 WBC 7.0 (4.8-10.8) x10^3/uL RBC 3.41 L (4.20-5.40) 10^6/uL Hgb 11.2 L (12.0-16.0) g/dL Hct 32.7 L (37.0-47.0) % MCV 95.8 (81.0-99.0) fL MCH 32.8 H (27.0-31.0) pg MCHC 34.3 (32.0-36.0) g/dL RDW 14.2 (12.0-15.0) % Plt Count 153 (130-450) 10^3/uL MPV 8.2 (7.9-10.8) fL Neut # (Auto) 5.5 (1.5-6.6) 10^3/uL Lymph # (Auto) 0.7 L (1.5-3.5) 10^3/uL Bell # (Auto) 0.6 (0.0-1.0) 10^3/uL Eos # (Auto) 0.2 (0.0-0.7) 10^3/uL Baso # (Auto) 0.1 (0.0-0.1) 10^3/uL Absolute Nucleated RBC 0.00 x10^3/uL Nucleated RBC % 0.0 /100WBC Sodium 134 L (135-145) mmol/L Potassium 4.0 (3.5-5.0) mmol/L Chloride 101 (101-111) mmol/L Carbon Dioxide 25 (21-32) mmol/L Anion Gap 8.0 (6-13) BUN 12 (6-20) mg/dL Creatinine 0.7 (0.4-1.0) mg/dL Estimated GFR (MDRD) 80 L (>89) Glucose 79 (70-100) mg/dL Calcium 8.0 L (8.5-10.3) mg/dL Phosphorus 3.5 (2.5-4.6) mg/dL Magnesium 1.7 (1.7-2.8) mg/dL Total Bilirubin 0.8 (0.2-1.0) mg/dL AST 37 (10-42) IU/L ALT 25 (10-60) IU/L Alkaline Phosphatase 52 (42-121) IU/L Total Protein 5.1 L (6.7-8.2) g/dL Albumin 2.7 L (3.2-5.5) g/dL Globulin 2.4 (2.1-4.2) g/dL Albumin/Globulin Ratio 1.1 (1.0-2.2) - Current Medications Current Medications: Current Medications Generic Name Dose Route Start Last Admin Trade Name Freq PRN Reason Stop Dose Admin Enoxaparin Sodium 40 mg 08/15/18 17:00 08/16/18 09:03 Lovenox SUBQ 40 mg DAILY [facility]ANIE Administration Acetaminophen 100 mls @ 400 mls/hr 08/15/18 12:00 08/16/18 06:35 Ofirmev IV Infused Q6H [facility] Infusion Famotidine 50 mls @ 100 mls/hr 08/15/18 09:00 08/16/18 09:03 Pepcid 20 Mg/50 Ml IV 100 mls/hr BID [facility] Administration Sodium Chloride 10 ml 08/15/18 09:00 08/16/18 09:03 Normal Saline Flush 0.9% IVP Not Given 0100,0900,1700 [facility] - Physical Exam Wound/Incisions: positive: Dressing dry and intact General Appearance: positive: No acute distress, Alert Eyes Bilateral: positive: No scleral icterus ENT: positive: ENT inspection nml, No signs of dehydration Neck: positive: No JVD Respiratory: positive: Chest non-tender, No respiratory distress, Breath sounds nml. negative: Wheezes, Rales, Rhonchi Cardiovascular: positive: Regular rate & rhythm, No murmur, No gallop Abdomen: positive: Non-tender, Nml bowel sounds Skin: positive: Color nml, No rash, Warm, Dry Extremities: positive: No pedal edema. negative: Calf tenderness Neurologic/Psychiatric: positive: Oriented x3 ABX Reporting Has patient been on IV antibiotics over the past 48 hours?: No Impression/Plan - Problem List Problem List: PO Day #1 s/p expl lap, lysis of adhesions; doing well. PLan: D/c NG tube, start liquid diet, OOB more, pulmonary toilet, D/C IVF.
[2018-08-16] MEDS ORDERED: ZOLPIDEM 5 MG TABLET PO PRN (19:05)
--- NOTE | 2018-08-16 20:07 | PROVIDER PROGRESS NOTE ---
Subjective - Prog Note Date Prog Note Date: 08/16/18 Prog Note Time: 20:05 - Subjective Pt reports feeling: Improved Subjective: Having flatus. No BM. Surgery has started her on clear diet. Current Medications - Current Medications Current Medications: Active Medications Enoxaparin Sodium (Lovenox) 40 mg SUBQ DAILY [facility] Last Admin: 08/16/18 09:03 Dose: 40 mg Acetaminophen (Ofirmev) 100 mls @ 400 mls/hr IV Q6H [facility] Last Infusion: 08/16/18 11:25 Dose: Infused Famotidine (Pepcid 20 Mg/50 Ml) 50 mls @ 100 mls/hr IV BID [facility] Last Admin: 08/16/18 09:03 Dose: 100 mls/hr Metoprolol Tartrate (Lopressor Inj) 5 mg IVP Q6HR PRN PRN Reason: Blood pressure >160 systolic Ondansetron HCl (Zofran Inj) 4 mg IVP Q6HR PRN PRN Reason: Nausea / Vomiting Sodium Chloride (Normal Saline Flush 0.9%) 10 ml IVP PRN PRN PRN Reason: NEEDED PER PROVIDER ORDERS Sodium Chloride (Normal Saline Flush 0.9%) 10 ml IVP 0100,0900,1700 [facility] Last Admin: 08/16/18 09:03 Dose: Not Given Zolpidem Tartrate (Ambien) 2.5 mg PO QPM PRN PRN Reason: Insomnia Metoprolol Succinate [Toprol Xl] 12.5 mg PO BID 08/14/17 Levothyroxine Sodium [Synthroid] 50 mcg PO QDAC 08/14/18 Atorvastatin Calcium [Lipitor] 80 mg PO QPM 08/15/18 Objective - Vital Signs/Intake & Output Reviewed Vital Signs: Yes Vital Signs: Vital Signs x48h Temp Pulse Pulse Resp BP Pulse Ox 08/16/18 17:00 36.6 C 78 18 93 08/16/18 15:53 36.6 C 78 18 144/87 H 98 08/16/18 12:59 36.6 C 89 18 145/56 H 94 Intake & Output: Intake & Output 08/13/18 08/14/18 08/15/18 08/16/18 23:59 23:59 23:59 23:59 Intake Total 2496.667 1541.666 Output Total 275 800 Balance 2221.667 741.666 - Objective General Appearance: positive: No acute distress, Alert, Other (Fatigued appea ring elderly white female who is well-nourished well-developed) Eyes Bilateral: positive: PERRL, EOMI ENT: positive: Pharynx nml Neck: positive: No JVD. negative: Stiff neck, Carotid bruit Respiratory: positive: Chest non-tender. negative: Wheezes, Rales, Rhonchi Cardiovascular: positive: Regular rate & rhythm. negative: Gallop/S4, Friction rub Abdomen: positive: No organomegaly, Nml bowel sounds, No distention, Tenderness Skin: positive: Warm, Dry Extremities: positive: Non-tender, Full ROM, No pedal edema Neurologic/Psychiatric: positive: Oriented x3, CN's nml (2-12), Motor nml - Lab Results Fish Bones: 08/16/18 05:00 08/16/18 05:00 Other Labs: Lab Results x24hrs 08/16/18 08/16/18 Range/Units 05:00 05:00 WBC 7.0 (4.8-10.8) x10^3/uL RBC 3.41 L (4.20-5.40) 10^6/uL Hgb 11.2 L (12.0-16.0) g/dL Hct 32.7 L (37.0-47.0) % MCV 95.8 (81.0-99.0) fL MCH 32.8 H (27.0-31.0) pg MCHC 34.3 (32.0-36.0) g/dL RDW 14.2 (12.0-15.0) % Plt Count 153 (130-450) 10^3/uL MPV 8.2 (7.9-10.8) fL Neut # (Auto) 5.5 (1.5-6.6) 10^3/uL Lymph # (Auto) 0.7 L (1.5-3.5) 10^3/uL Mccone # (Auto) 0.6 (0.0-1.0) 10^3/uL Eos # (Auto) 0.2 (0.0-0.7) 10^3/uL Baso # (Auto) 0.1 (0.0-0.1) 10^3/uL Absolute Nucleated RBC 0.00 x10^3/uL Nucleated RBC % 0.0 /100WBC Sodium 134 L (135-145) mmol/L Potassium 4.0 (3.5-5.0) mmol/L Chloride 101 (101-111) mmol/L Carbon Dioxide 25 (21-32) mmol/L Anion Gap 8.0 (6-13) BUN 12 (6-20) mg/dL Creatinine 0.7 (0.4-1.0) mg/dL Estimated GFR (MDRD) 80 L (>89) Glucose 79 (70-100) mg/dL Calcium 8.0 L (8.5-10.3) mg/dL Phosphorus 3.5 (2.5-4.6) mg/dL Magnesium 1.7 (1.7-2.8) mg/dL Total Bilirubin 0.8 (0.2-1.0) mg/dL AST 37 (10-42) IU/L ALT 25 (10-60) IU/L Alkaline Phosphatase 52 (42-121) IU/L Total Protein 5.1 L (6.7-8.2) g/dL Albumin 2.7 L (3.2-5.5) g/dL Globulin 2.4 (2.1-4.2) g/dL Albumin/Globulin Ratio 1.1 (1.0-2.2) ABX Reporting Has patient been on IV antibiotics over the past 48 hours?: Yes Assessment/Plan - Problem List (1) Small bowel obstruction Impression: The patient presented with abdominal pain which initially started in the lower a bdomen and then made its way up to the upper abdomen. The patient had associated nausea. Patient underwent CT of her abdomen and pelvis which revealed high-grade, possibly closed loop small bowel obstruction in the pelvis complicated by a quite edematous, hypoenhancing, and likely ischemic segment of small bowel in the left pelvis. There was also moderate adjacent mesenteric edema. Surgery was consulted in the emergency department and We will take the patient to the OR for an exploratory lap given the high-grade obstruction. They have asked that we admit the patient postop. The patient has no history of ischemic heart disease, congestive heart failure, cerebrovascular disease, diabetes or chronic kidney disease. The patient does have coronary calcifications on the CT and strong family history of CAD and severe hyperlipidemia but she has never had an PR and EKG and trop were negative on presentation. With a 0.4%According to the revised cardiac risk index for preoperative risk the patient has a class I risk risk of major cardiac event. Plan: OR for surgical repair of high-grade small bowel obstruction with exploratory lap. She is POD #1 and is progressing to clear liquids today IV fluids IV antiemetics IV pain medication (2) Hypertension Conclusion/Plan: Patient has a history of hypertension and is on metoprolol at home. The patient's blood pressure was elevated on presentation to the emergency depar tment. The blood pressure did improve once the patient's pain was better controlled. Likely the patient's initial elevation of blood pressure was due to pain. Plan: Place patient on metoprolol 5 mg IV every 6 hours as needed for hypertension but will resume her po meds today. Qualifiers: Hypertension type: essential hypertension Qualified Code(s): I10 - Essential (primary) hypertension (3) Hypothyroidism Conclusion/Plan: The patient has a history of hypothyroidism and takes Synthroid at home. Resume po synthroid and check TSH. Qualifiers: Hypothyroidism type: unspecified Qualified Code(s): E03.9 - Hypothyroidism, unspecified (4) Hyperlipidemia Conclusion/Plan: The patient has a history of hyperlipidemia and is on a statin at home. We will hold the statin if the patient has to be strictly n.p.o. after surgery. No need to resume unti discharge. Qualifiers: Hyperlipidemia type: unspecified Qualified Code(s): E78.5 - Hyperlipidemia, unspecified
[2018-08-16] MEDS: METOPROLOL SUCCINATE 25 MG TABLET PO SCH (21:19)
[2018-08-17] MEDS: SODIUM CHLORIDE 0.9% 1,000 ML IV SCH (00:03)
[2018-08-17] MEDS: SODIUM CHLORIDE FLUSH 0.9% 10 ML SYRINGE IVP SCH ×3 (04:06→16:53)
[2018-08-17] MEDS: ACETAMINOPHEN 1,000 MG/100 ML 100 ML IV SCH ×3 (04:06→12:57)
[2018-08-17 06:33] LABS: BASOPHILS # (AUTO) 0.1 10^3/uL (0.0-0.1); BASOPHILS % (AUTO) 0.8 %; EOSINOPHILS # (AUTO) 0.2 10^3/uL (0.0-0.7); EOSINOPHILS % (AUTO) 3.5 %; HGB - HEMOGLOBIN 10.8 g/dL (12.0-16.0); LYMPHOCYTES # (AUTO) 0.7 10^3/uL (1.5-3.5); LYMPHOCYTES % (AUTO) 10.6 %; MEAN CORPUSCULAR HEMOGLOBIN 32.7 pg (27.0-31.0); MEAN CORPUSCULAR HGB CONC 34.3 g/dL (32.0-36.0); MEAN CORPUSCULAR VOLUME 95.5 fL (81.0-99.0); MEAN PLATELET VOLUME 8.6 fL (7.9-10.8); MONOCYTES # (AUTO) 0.6 10^3/uL (0.0-1.0); MONOCYTES % (AUTO) 9.7 %; NEUTROPHILS # (AUTO) 4.9 10^3/uL (1.5-6.6); NEUTROPHILS % (AUTO) 75.4 %; PLT - PLATELET COUNT 157 10^3/uL (130-450); RED BLOOD COUNT 3.31 10^6/uL (4.20-5.40); RED CELL DISTRIBUTION WIDTH 13.9 % (12.0-15.0); WHITE BLOOD COUNT 6.5 x10^3/uL (4.8-10.8)
[2018-08-17 06:45] LABS: ALBUMIN 2.9 g/dL (3.2-5.5); ALBUMIN/GLOBULIN RATIO 1.1 (1.0-2.2); BILIRUBIN,TOTAL 0.9 mg/dL (0.2-1.0); CALCIUM 8.1 mg/dL (8.5-10.3); CREATININE 0.6 mg/dL (0.4-1.0); MAGNESIUM 1.8 mg/dL (1.7-2.8); PHOSPHORUS 2.1 mg/dL (2.5-4.6); TOTAL PROTEIN 5.6 g/dL (6.7-8.2)
[2018-08-17] MEDS: ENOXAPARIN 40 MG/0.4 ML SYRINGE SUBQ SCH (09:03)
[2018-08-17] MEDS: FAMOTIDINE 20 MG/50 ML 50 ML IV SCH (09:04)
[2018-08-17] MEDS: METOPROLOL SUCCINATE 25 MG TABLET PO SCH (09:04)
--- NOTE | 2018-08-17 13:01 | PROVIDER PROGRESS NOTE ---
Subjective - Prog Note Date Prog Note Date: 08/17/18 Prog Note Time: 12:58 - Subjective Pt reports feeling: Improved Subjective: She was a little anxious last night because she had a bloody nose. NG had already been pulled out. She was reassured by the overnight hospitalist. Today she just feels a little bit bloated. But no nausea, no vomiting. Had a bowel movement this morning. General surgery has advanced her diet. Current Medications - Current Medications Current Medications: Active Medications Enoxaparin Sodium (Lovenox) 40 mg SUBQ DAILY [facility] Last Admin: 08/17/18 09:03 Dose: 40 mg Acetaminophen (Ofirmev) 100 mls @ 400 mls/hr IV Q6H [facility] Last Infusion: 08/17/18 04:30 Dose: Infused Famotidine (Pepcid 20 Mg/50 Ml) 50 mls @ 100 mls/hr IV BID [facility] Last Infusion: 08/17/18 09:57 Dose: Infused Metoprolol Succinate (Toprol Xl) 25 mg PO DAILY [facility] Last Admin: 08/17/18 09:04 Dose: 25 mg Metoprolol Tartrate (Lopressor Inj) 5 mg IVP Q6HR PRN PRN Reason: Blood pressure >160 systolic Ondansetron HCl (Zofran Inj) 4 mg IVP Q6HR PRN PRN Reason: Nausea / Vomiting Sodium Chloride (Normal Saline Flush 0.9%) 10 ml IVP PRN PRN PRN Reason: NEEDED PER PROVIDER ORDERS Sodium Chloride (Normal Saline Flush 0.9%) 10 ml IVP 0100,0900,1700 [facility] Last Admin: 08/17/18 09:05 Dose: 10 ml Zolpidem Tartrate (Ambien) 2.5 mg PO QPM PRN PRN Reason: Insomnia Metoprolol Succinate [Toprol Xl] 12.5 mg PO BID 08/14/17 Levothyroxine Sodium [Synthroid] 50 mcg PO QDAC 08/14/18 Atorvastatin Calcium [Lipitor] 80 mg PO QPM 08/15/18 Objective - Vital Signs/Intake & Output Reviewed Vital Signs: Yes Vital Signs: Vital Signs x48h Temp Pulse Resp BP Pulse Ox 08/17/18 08:30 36.6 C 77 20 150/68 H 95 08/17/18 06:08 36.7 C 70 18 158/72 H 96 Intake & Output: Intake & Output 08/14/18 08/15/18 08/16/18 08/17/18 23:59 23:59 23:59 23:59 Intake Total 2496.667 1891.666 811.667 Output Total 275 1400 300 Balance 2221.667 491.666 511.667 - Objective General Appearance: positive: No acute distress, Alert, Other (She just looks a little muted and affect, tired but otherwise stable) Eyes Bilateral: positive: PERRL, EOMI ENT: positive: Pharynx nml Neck: positive: No JVD. negative: Stiff neck, Carotid bruit Respiratory: positive: Chest non-tender. negative: Wheezes, Rales, Rhonchi Cardiovascular: positive: Regular rate & rhythm. negative: Systolic murmur, Gallop/S4, Friction rub Abdomen: positive: No organomegaly, Nml bowel sounds, No distention, Tenderness (Over incision site). negative: Guarding, Rebound Skin: positive: Warm, Dry Extremities: positive: Full ROM, No pedal edema. negative: Yina's sign/cords Neurologic/Psychiatric: positive: Oriented x3, CN's nml (2-12), Motor nml, Sensation nml - Lab Results Fish Bones: 08/17/18 05:30 08/17/18 05:30 Other Labs: Lab Results x24hrs 08/17/18 08/17/18 08/17/18 Range/Units 05:30 05:30 05:30 WBC 6.5 (4.8-10.8) x10^3/uL RBC 3.31 L (4.20-5.40) 10^6/uL Hgb 10.8 L (12.0-16.0) g/dL Hct 31.6 L (37.0-47.0) % MCV 95.5 (81.0-99.0) fL MCH 32.7 H (27.0-31.0) pg MCHC 34.3 (32.0-36.0) g/dL RDW 13.9 (12.0-15.0) % Plt Count 157 (130-450) 10^3/uL MPV 8.6 (7.9-10.8) fL Neut # (Auto) 4.9 (1.5-6.6) 10^3/uL Lymph # (Auto) 0.7 L (1.5-3.5) 10^3/uL [place] # (Auto) 0.6 (0.0-1.0) 10^3/uL Eos # (Auto) 0.2 (0.0-0.7) 10^3/uL Baso # (Auto) 0.1 (0.0-0.1) 10^3/uL Absolute Nucleated RBC 0.00 x10^3/uL Nucleated RBC % 0.0 /100WBC Sodium 129 L (135-145) mmol/L Potassium 3.7 (3.5-5.0) mmol/L Chloride 100 L (101-111) mmol/L Carbon Dioxide 25 (21-32) mmol/L Anion Gap 4.0 L (6-13) BUN 10 (6-20) mg/dL Creatinine 0.6 (0.4-1.0) mg/dL Estimated GFR (MDRD) 95 (>89) Glucose 85 (70-100) mg/dL Calcium 8.1 L (8.5-10.3) mg/dL Phosphorus 2.1 L (2.5-4.6) mg/dL Magnesium 1.8 (1.7-2.8) mg/dL Total Bilirubin 0.9 (0.2-1.0) mg/dL AST 38 (10-42) IU/L ALT 25 (10-60) IU/L Alkaline Phosphatase 57 (42-121) IU/L Total Protein 5.6 L (6.7-8.2) g/dL Albumin 2.9 L (3.2-5.5) g/dL Globulin 2.7 (2.1-4.2) g/dL Albumin/Globulin Ratio 1.1 (1.0-2.2) TSH 3.58 (0.34-5.60) uIU/mL ABX Reporting Has patient been on IV antibiotics over the past 48 hours?: Yes Assessment/Plan - Problem List (1) Small bowel obstruction Impression: The patient presented with abdominal pain which initially started in the lower abdomen and then made its way up to the upper abdomen. The patient had associated nausea. Patient underwent CT of her abdomen and pelvis which revealed high-grade, possibly closed loop small bowel obstruction in the pelvis complicated by a quite edematous, hypoenhancing, and likely ischemic segment of small bowel in the left pelvis. There was also moderate adjacent mesenteric edema. Surgery was consulted in the emergency department and We will take the patient to the OR for an exploratory lap given the high-grade obstruction. They have asked that we admit the patient postop. The patient has no history of ischemic heart disease, congestive heart failure, cerebrovascular disease, diabetes or chronic kidney disease. The patient does have coronary calcifications on the CT and strong family history of CAD and severe hyperlipidemia but she has never had an FL and EKG and trop were negative on presentation. With a 0.4%According to the revised cardiac risk index for preoperative risk the patient has a class I risk risk of major cardiac event. Plan: OR for surgical repair of high-grade small bowel obstruction with exploratory lap. She is POD #2 and is progressing to full and regular diet today. If she does well w diet, to go home today. IV fluids stopped IV antiemetics prn to continue IV pain medication to stop and change to oral (2) Hypertension Conclusion/Plan: Patient has a history of hypertension and is on metoprolol at home. The patient's blood pressure was elevated on presentation to the emergency department. The blood pressure did improve once the patient's pain was better controlled. Likely the patient's initial elevation of blood pressure was due to pain. Plan: Place patient on metoprolol 5 mg IV every 6 hours as needed for hypertension but will resume her po meds today. Qualifiers: Hypertension type: essential hypertension Qualified Code(s): I10 - Essential (primary) hypertension (3) Hypothyroidism Conclusion/Plan: The patient has a history of hypothyroidism and takes Synthroid at home. Resume po synthroid and check TSH. Qualifiers: Hypothyroidism type: unspecified Qualified Code(s): E03.9 - Hypothyroidism, unspecified (4) Hyperlipidemia Conclusion/Plan: The patient has a history of hyperlipidemia and is on a statin at home. We will hold the statin if the patient has to be strictly n.p.o. after surgery. No need to resume unti discharge. Qualifiers: Hyperlipidemia type: unspecified Qualified Code(s): E78.5 - Hyperlipidemia, unspecified
[2018-08-17] MEDS ORDERED: SODIUM CHLORIDE 0.9% 1,000 ML IV ONE (15:52)
--- NOTE | 2018-08-17 16:34 | Discharge Plan ---
Discharge Plan Disposition: 01 Home, Self Care Condition: Stable Diet: Regular (low fiber, no raw vegetables.) Activity Restrictions: Activity as Tolerated Shower Restrictions: Yes (if dressing gets wet, needs to be changed to dry) Driving Restrictions: No Additional Instructions or Follow Up instructions: You were admitted to the hospital because of a partial small bowel obstruction. Fortunately, when Dr. Verdin operated on you he only found you to have a small adhesion causing the small bowel obstruction. He snipped the adhesion and that was the end of it. You have recovered nicely. A little bit dehydrated after surgery and you needed an extra liter of fluid before you left home. But you are tolerating a regular diet, having normal bowel movements, and ambulatory in your room without any difficulty. Your pain is very well controlled and as such we are just sending you home on Tylenol or Aleve. Dr. Verdin wants to see you next week in his office. For pain management use [id number] Tylenol or Aleve. You can do normal activities. Just please refrain from lifting anything heavier than 10 pounds for the next week. You can take a shower, but do not take a bath. If your dressings get wet please change those dressings and keep your wound clean and dry. If you develop any fever, chills, cough, shortness of breath, vomiting, abdominal pain, or severe discomfort of any kind please call Dr. Verdin or your primary care provider. No Smoking: If you smoke, Please STOP! Call for help. Follow-up with: Becka Buchanan PA [Primary Care Provider] - Greg Verdin MD [Provider Admit Priv/Credential] -
--- NOTE | 2018-08-17 16:42 | PROVIDER PROGRESS NOTE ---
Subjective - General Admit Date: 08/15/18 Procedure Date: 08/15/18 Post Op Days: 2 Procedure Performed: Exp lap, KASSY - Review of Systems Wound/Incisions: positive: Dressing dry and intact General: positive: No symptoms Cardiovascular: positive: No symptoms Gastrointestinal: positive: Abdominal pain (minimal incisional; well controlled with acetaminophen), Flatus (passing flatus and stool today x 2.). negative: Nausea, Vomiting, Difficulty swallowing Genitourinary: positive: No symptoms Musculoskeletal: positive: No symptoms Psychiatric: positive: No symptoms - Other Other Information/Narrative: Feels well and asking to be discharged home. Tolerating liquid diet well, voiding, passing flatus and stool, and ambulating well. Good pain control with acetaminophen. Objective - Patient Data Reviewed Vital Signs: Yes Weight: Weight 08/15/18 08/16/18 08/17/18 23:59 23:59 23:59 Weight (kg) 53 kg 58.5 kg 54 kg Intake & Output: Intake and Output Totals x24h 08/15/18 08/16/18 08/17/18 23:59 23:59 23:59 Intake Total 2496.667 3168.898 8033.667 Output Total 275 1400 300 Balance 2221.667 491.666 911.667 - Lab Results Lab Results: 08/17/18 05:30 08/17/18 05:30 Other Lab Results: Lab Results x24hrs 08/17/18 08/17/18 08/17/18 Range/Units 05:30 05:30 05:30 WBC 6.5 (4.8-10.8) x10^3/uL RBC 3.31 L (4.20-5.40) 10^6/uL Hgb 10.8 L (12.0-16.0) g/dL Hct 31.6 L (37.0-47.0) % MCV 95.5 (81.0-99.0) fL MCH 32.7 H (27.0-31.0) pg MCHC 34.3 (32.0-36.0) g/dL RDW 13.9 (12.0-15.0) % Plt Count 157 (130-450) 10^3/uL MPV 8.6 (7.9-10.8) fL Neut # (Auto) 4.9 (1.5-6.6) 10^3/uL Lymph # (Auto) 0.7 L (1.5-3.5) 10^3/uL [place] # (Auto) 0.6 (0.0-1.0) 10^3/uL Eos # (Auto) 0.2 (0.0-0.7) 10^3/uL Baso # (Auto) 0.1 (0.0-0.1) 10^3/uL Absolute Nucleated RBC 0.00 x10^3/uL Nucleated RBC % 0.0 /100WBC Sodium 129 L (135-145) mmol/L Potassium 3.7 (3.5-5.0) mmol/L Chloride 100 L (101-111) mmol/L Carbon Dioxide 25 (21-32) mmol/L Anion Gap 4.0 L (6-13) BUN 10 (6-20) mg/dL Creatinine 0.6 (0.4-1.0) mg/dL Estimated GFR (MDRD) 95 (>89) Glucose 85 (70-100) mg/dL Calcium 8.1 L (8.5-10.3) mg/dL Phosphorus 2.1 L (2.5-4.6) mg/dL Magnesium 1.8 (1.7-2.8) mg/dL Total Bilirubin 0.9 (0.2-1.0) mg/dL AST 38 (10-42) IU/L ALT 25 (10-60) IU/L Alkaline Phosphatase 57 (42-121) IU/L Total Protein 5.6 L (6.7-8.2) g/dL Albumin 2.9 L (3.2-5.5) g/dL Globulin 2.7 (2.1-4.2) g/dL Albumin/Globulin Ratio 1.1 (1.0-2.2) TSH 3.58 (0.34-5.60) uIU/mL - Current Medications Current Medications: Current Medications Generic Name Dose Route Start Last Admin Trade Name Freq PRN Reason Stop Dose Admin Enoxaparin Sodium 40 mg 08/15/18 17:00 08/17/18 09:03 Lovenox SUBQ 40 mg DAILY JOANIE Administration Acetaminophen 100 mls @ 400 mls/hr 08/15/18 12:00 08/17/18 13:27 Ofirmev IV Infused Q6H JOANIE Infusion Metoprolol Succinate 25 mg 08/16/18 20:09 08/17/18 09:04 Toprol Xl PO 25 mg DAILY JOANIE Administration Sodium Chloride 10 ml 08/15/18 09:00 08/17/18 09:05 Normal Saline Flush 0.9% IVP 10 ml 0100,0900,1700 JOANIE Administration - Physical Exam Wound/Incisions: positive: Dressing dry and intact General Appearance: positive: No acute distress, Alert Eyes Bilateral: positive: Normal inspection ENT: positive: ENT inspection nml Neck: positive: Nml inspection Respiratory: positive: Chest non-tender, No respiratory distress, Breath sounds nml Abdomen: positive: Nml bowel sounds, No distention, Tenderness (minimal incisional; dressing dry/intact after being changed last night for sanguinous d/c.) Skin: positive: Color nml, No rash, Warm, Dry. negative: Cyanosis Extremities: positive: No pedal edema. negative: Calf tenderness Neurologic/Psychiatric: positive: Oriented x3 ABX Reporting Has patient been on IV antibiotics over the past 48 hours?: No Impression/Plan - Problem List Problem List: Doing well PO Day #2 s/p exp. lap. with KASSY for closed loop SBO. PLan: home today on diet which avoids raw vegetables and nuts. F/u my office next week for SR. Usual precautions.
[2018-08-17 18:28] VITALS: BP 168/67
--- NOTE | 2018-08-17 21:27 | DISCHARGE SUMMARY ---
Physician: Maureen Holden MD DATE OF ADMISSION: 08/15/2018 DATE OF DISCHARGE: 08/17/2018 DISCHARGE DIAGNOSES 1. Small-bowel obstruction secondary to adhesions. 2. Hypertension. 3. Hypothyroidism. 4. Hyperlipidemia. 5. Hyponatremia. 6. Anemia from acute blood loss. DISCHARGE MEDICATIONS 1. Lipitor 80 mg p.o. q.p.m. 2. Levothyroxine 50 mcg daily. 3. Metoprolol succinate 12.5 mg p.o. b.i.d. PRINCIPAL PROCEDURES 1. Exploratory laparotomy with lysis of adhesions on 08/15/2018. 2. Chest x-ray, no acute findings seen. 3. Abdomen and pelvis CT with high-grade closed loop small-bowel obstruction in the pelvis complicat ed by edematous, hypoenhancing, and likely ischemic segment of small bowel in the left pelvis. Moder ate adjacent mesenteric edema. Moderate atherosclerotic disease of the aorta and branches. This inc ludes severe coronary calcifications. Colonic diverticulosis. HOSPITAL COURSE: The patient is a pleasant 83-year-old white female who lives in her own home with h er . She has a past medical history significant for hypertension, hypothyroidism, and hyperli pidemia, who presented to the emergency room with a chief complaint of abdominal pain. She was in a completely normal state of health until around 8:00 on the evening of admission. She began having kelsey dden cramping in the lower abdomen and the abdomen felt bloated. Pain made its way up into the right upper quadrant and in the epigastric area. She has been reading about heart attacks in a book she g ot from the [facility] and once the pain made its way up to the epigastric area, she was concerned t hat she was having a heart attack and came to the emergency room. Pain was 7/10 and associated with nausea. It has been going on now for 2 hours and was not going away. She had a small bowel movement earlier in the day. She ate dinner around 4:00 p.m. She did not remember that she did not have a r eally good appetite and ate less than she usually does. She denied fever, chills, rigors, shortness of breath, vomiting. Her temperature was 36.5, blood pressure 174/86. She was 99% on room air, respirations were 18, and pulse of 65. She had normal bowel sounds, diffusely tender abdomen that was soft, distended without peritoneal findings. Although bowel sounds were present. They were hypoactive. She did not have gu arding, rebound, or hepatomegaly. White cell count was 4.4. Hemoglobin 12.7. She was mildly hyponatremic at 132. The CT scan showed the small-bowel obstruction with early ischemia. She was taken to the operating room by Dr. Greg Verdin. He found her to have a simple adhesion as t he cause of the bowel obstruction and he performed a simple lysis of adhesion. The patient recovered very quickly in the postoperative setting. By postop day #2, she did advance to clear liquid diet, to full liquid diet, and to a regular diet without any abdominal pain, nausea or vomiting. She was a lso very leery of taking any pain medicine and felt that she was perfectly well controlled with the s imple Tylenol and did not want opiates. Hypertension remained controlled during her stay. The lowest she got was 119/60. On the day of disc harge, she was 150/68. Her usual medications were resumed in the form of Toprol. As for hyperlipide mackenzie, her Lipitor was resumed and for hypothyroidism, her Synthroid was resumed. Sodium did go from 132-134, then to 129 on the day of discharge and she was given a liter of fluid. In the outpatient setting, a BMP should be monitored. TSH was 3.58. Dr. Verdin has instructed the patient to see him in a week. She does not need any pain medicine othe r than Tylenol or Aleve [id number]. She is to be on a low-fiber [id number]-jqzhcoece diet. She c an resume her usual activities, but no heavy lifting greater than 10 pounds for the next week. She c an take a shower, but she needs to keep her dressing dry. If it gets wet, is to change the dressing. PHYSICAL EXAMINATION: VITAL SIGNS: On discharge examination, temperature was 36.6, pulse 77, blood pressure 150/68, respir ations 20. She is 95% on room air. GENERAL: She is a short-statured, 5-foot 2-inch, elderly female at 54 kg. She seems a little pale, little tired, but otherwise in no acute distress. NECK: Supple. No goiter or bruits. LUNGS: Completely clear to auscultation and percussion. She ambulates in her room slowly without at axia and no increased respiratory effort. She has a regular rate and rhythm. No murmurs, rubs or ga llops. ABDOMEN: Still touchy, and mildly tender when you palpate it, but she has normal bowel sounds. Nond istended. No rebound or guarding. EXTREMITIES have no edema. Greater than 30 minutes was spent coordinating discharge, discussing the case with Dr. Verdin, and ex plaining to the family. TD: 08/17/2018 17:37
== END 2018-08-17 18:45 | disposition home or self-care (01) | DRG 336 ==
LOC: ED 22:56 → MS3 08-15 02:27
PROVIDERS: ADMIT Internal Medicine; ATTEND Specialist
PROC: 0DNA0ZZ Release Jejunum, Open Approach (ICD-10-PCS; principal; 2018-08-15 04:15)
DX: K56.609 Unspecified intestinal obstruction, unspecified as to partial versus complete obstruction (principal); K56.50 Intestinal adhesions [bands], unspecified as to partial versus complete obstruction; E87.1 Hypo-osmolality and hyponatremia; D62 Acute posthemorrhagic anemia; Z87.891 Personal history of nicotine dependence; Z79.899 Other long term (current) drug therapy; E86.0 Dehydration; J44.9 Chronic obstructive pulmonary disease, unspecified; I10 Essential (primary) hypertension; E03.9 Hypothyroidism, unspecified; E78.5 Hyperlipidemia, unspecified; I70.0 Atherosclerosis of aorta; I25.10 Atherosclerotic heart disease of native coronary artery without angina pectoris; K57.30 Diverticulosis of large intestine without perforation or abscess without bleeding
CPT/HCPCS: 36415; 71045; 74177; 80053; 81001; 81003; 83605; 83690; 83735; 84100; 84443; 84484; 85025; 85610; 87086; 90670; 93005; 96360; 96361; 99284; 99285

== ENCOUNTER 2018-08-26 11:52 | Outpatient (CLI) | payer MEDICARE, OTHER ==
[2018-08-26 18:57] LABS: BASOPHILS # (AUTO) 0.1 10^3/uL (0.0-0.1); BASOPHILS % (AUTO) 2.5 %; EOSINOPHILS # (AUTO) 0.2 10^3/uL (0.0-0.7); EOSINOPHILS % (AUTO) 4.9 %; HGB - HEMOGLOBIN 11.9 g/dL (12.0-16.0); LYMPHOCYTES # (AUTO) 0.9 10^3/uL (1.5-3.5); LYMPHOCYTES % (AUTO) 19.7 %; MEAN CORPUSCULAR HEMOGLOBIN 32.3 pg (27.0-31.0); MEAN CORPUSCULAR HGB CONC 33.6 g/dL (32.0-36.0); MEAN CORPUSCULAR VOLUME 96.3 fL (81.0-99.0); MEAN PLATELET VOLUME 8.1 fL (7.9-10.8); MONOCYTES # (AUTO) 0.5 10^3/uL (0.0-1.0); MONOCYTES % (AUTO) 11.1 %; NEUTROPHILS # (AUTO) 2.9 10^3/uL (1.5-6.6); NEUTROPHILS % (AUTO) 61.8 %; PLT - PLATELET COUNT 305 10^3/uL (130-450); RED BLOOD COUNT 3.67 10^6/uL (4.20-5.40); RED CELL DISTRIBUTION WIDTH 14.5 % (12.0-15.0); WHITE BLOOD COUNT 4.6 x10^3/uL (4.8-10.8)
[2018-08-26 19:00] LABS: CALCIUM 9.3 mg/dL (8.5-10.3); CREATININE 0.5 mg/dL (0.4-1.0)
== END 2018-08-26 11:53 | disposition home or self-care (01) ==
LOC: LAB.WCP 11:52
PROVIDERS: ATTEND Physician Assistant
DX: E87.1 Hypo-osmolality and hyponatremia (principal); R53.1 Weakness
CPT/HCPCS: 36415; 80048; 85025

== ENCOUNTER 2018-09-28 08:00 | Outpatient (CLI) | payer MEDICARE, OTHER ==
[2018-09-28 19:13] LABS: BASOPHILS # (AUTO) 0.1 10^3/uL (0.0-0.1); BASOPHILS % (AUTO) 1.4 %; EOSINOPHILS # (AUTO) 0.1 10^3/uL (0.0-0.7); EOSINOPHILS % (AUTO) 3.4 %; HGB - HEMOGLOBIN 12.1 g/dL (12.0-16.0); LYMPHOCYTES # (AUTO) 1.1 10^3/uL (1.5-3.5); LYMPHOCYTES % (AUTO) 29.7 %; MEAN CORPUSCULAR HEMOGLOBIN 32.6 pg (27.0-31.0); MEAN CORPUSCULAR HGB CONC 33.5 g/dL (32.0-36.0); MEAN CORPUSCULAR VOLUME 97.4 fL (81.0-99.0); MONOCYTES # (AUTO) 0.5 10^3/uL (0.0-1.0); MONOCYTES % (AUTO) 12.2 %; NEUTROPHILS % (AUTO) 53.3 %; PLT - PLATELET COUNT 204 10^3/uL (130-450); RED BLOOD COUNT 3.72 10^6/uL (4.20-5.40); RED CELL DISTRIBUTION WIDTH 13.9 % (12.0-15.0); WHITE BLOOD COUNT 3.8 x10^3/uL (4.8-10.8)
[2018-09-28 19:26] LABS: ALBUMIN 3.7 g/dL (3.2-5.5); ALBUMIN/GLOBULIN RATIO 1.2 (1.0-2.2); ALKALINE PHOSPHATASE 62 IU/L (42-121); ALT ALANINE AMINOTRANSFERASE 28 IU/L (10-60); AST ASPARTATE AMINOTRANSFERASE 42 IU/L (10-42); BILIRUBIN,TOTAL 0.8 mg/dL (0.2-1.0); BUN - BLOOD UREA NITROGEN 10 mg/dL (6-20); CALCIUM 9.1 mg/dL (8.5-10.3); CARBON DIOXIDE - CO2 29 mmol/L (21-32); CHLORIDE 97 mmol/L (101-111); CHOL/HDL RATIO 2.6 (<4.4); CHOLESTEROL 192 mg/dL; CREATININE 0.6 mg/dL (0.4-1.0); GFR - MDRD 95 (>89); GLUCOSE 92 mg/dL (70-100); HDL CHOLESTEROL 73 mg/dL; LDL CHOLESTEROL,CALCULATED 109 mg/dL; LDL/HDL RATIO 1.5 (<4.4); SODIUM 133 mmol/L (135-145); TOTAL PROTEIN 6.8 g/dL (6.7-8.2); VLDL CHOLESTEROL 10 mg/dL
== END 2018-09-28 23:59 | disposition home or self-care (01) ==
LOC: LAB.WCP 08:00
PROVIDERS: ATTEND Physician Assistant
DX: R53.83 Other fatigue (principal); E78.49 Other hyperlipidemia
CPT/HCPCS: 36415; 80053; 80061; 83721; 85025

== ENCOUNTER 2019-02-09 08:00 | Outpatient (CLI) | payer MEDICARE, OTHER | END 2019-02-09 23:59 | disposition home or self-care (01) | LOC: LAB.WCP 08:00 | PROVIDERS: ATTEND Family Medicine | DX: R31.9 Hematuria, unspecified (principal) | CPT/HCPCS: 87086 ==

== ENCOUNTER 2019-02-10 10:17 | Outpatient (CLI) | payer MEDICARE, OTHER ==
[2019-02-10 12:58] LABS: BASOPHILS % (AUTO) 1.2 %; EOSINOPHILS # (AUTO) 0.1 10^3/uL (0.0-0.7); EOSINOPHILS % (AUTO) 2.8 %; HGB - HEMOGLOBIN 12.4 g/dL (12.0-16.0); LYMPHOCYTES # (AUTO) 1.2 10^3/uL (1.5-3.5); MEAN CORPUSCULAR HEMOGLOBIN 32.3 pg (27.0-31.0); MEAN CORPUSCULAR VOLUME 94.9 fL (81.0-99.0); MEAN PLATELET VOLUME 8.8 fL (7.9-10.8); MONOCYTES # (AUTO) 0.6 10^3/uL (0.0-1.0); MONOCYTES % (AUTO) 15.6 %; NEUTROPHILS % (AUTO) 50.4 %; PLT - PLATELET COUNT 198 10^3/uL (130-450); RED BLOOD COUNT 3.84 10^6/uL (4.20-5.40); RED CELL DISTRIBUTION WIDTH 13.9 % (12.0-15.0); WHITE BLOOD COUNT 3.9 x10^3/uL (4.8-10.8)
[2019-02-10 13:34] LABS: ALBUMIN 3.7 g/dL (3.2-5.5); ALBUMIN/GLOBULIN RATIO 1.2 (1.0-2.2); ALKALINE PHOSPHATASE 58 IU/L (42-121); ALT ALANINE AMINOTRANSFERASE 17 IU/L (10-60); AST ASPARTATE AMINOTRANSFERASE 29 IU/L (10-42); BILIRUBIN,TOTAL 0.7 mg/dL (0.2-1.0); BUN - BLOOD UREA NITROGEN 14 mg/dL (6-20); CALCIUM 9.1 mg/dL (8.5-10.3); CARBON DIOXIDE - CO2 28 mmol/L (21-32); CHLORIDE 96 mmol/L (101-111); CHOL/HDL RATIO 3.4 (<4.4); CHOLESTEROL 245 mg/dL; CK- CREATINE KINASE 49 IU/L (22-269); CREATININE 0.8 mg/dL (0.4-1.0); GFR - MDRD 68 (>89); GLUCOSE 95 mg/dL (70-100); HDL CHOLESTEROL 72 mg/dL; LDL CHOLESTEROL,CALCULATED 164 mg/dL; LDL/HDL RATIO 2.3 (<4.4); SODIUM 131 mmol/L (135-145); TOTAL PROTEIN 6.8 g/dL (6.7-8.2); VLDL CHOLESTEROL 9 mg/dL
== END 2019-02-10 23:59 ==
LOC: LAB.WCP 10:17
PROVIDERS: ATTEND Physician Assistant
DX: Z79.899 Other long term (current) drug therapy (principal)
CPT/HCPCS: 36415; 80053; 80061; 82550; 83721; 85025

== ENCOUNTER 2019-02-23 11:02 | Outpatient (CLI) | payer MEDICARE, OTHER ==
[2019-02-23 19:25] LABS: BILIRUBIN,URINE NEGATIVE (NEGATIVE); GLUCOSE, URINE (UA) NEGATIVE (NEGATIVE); KETONES,URINE (UA) NEGATIVE (NEGATIVE); LEUKOCYTE ESTERASE, URINE NEGATIVE (NEGATIVE); NITRITE,URINE NEGATIVE (NEGATIVE); OCCULT BLOOD,URINE NEGATIVE (NEGATIVE); PROTEIN,URINE NEGATIVE (NEGATIVE); UROBILINOGEN,URINE 0.2 (NORMAL) E.U./dL (NORMAL)
[2019-02-23 19:27] LABS: CLARITY,URINE CLEAR (CLEAR)
== END 2019-02-23 11:03 | disposition home or self-care (01) ==
LOC: LAB.WCP 11:02
PROVIDERS: ATTEND Family Medicine
DX: R31.9 Hematuria, unspecified (principal)
CPT/HCPCS: 81001; 81003; 87086

== ENCOUNTER 2019-03-02 08:00 | Outpatient (CLI) | payer MEDICARE, OTHER | END 2019-03-02 23:59 | disposition home or self-care (01) | LOC: LAB.WCP 08:00 | PROVIDERS: ATTEND Physician Assistant | DX: E87.1 Hypo-osmolality and hyponatremia (principal) | CPT/HCPCS: 83935; 84300 ==

== ENCOUNTER 2019-04-11 08:00 | Outpatient (CLI) | payer MEDICARE, OTHER | END 2019-04-11 08:01 | disposition home or self-care (01) | LOC: LAB.WCP 08:00 | PROVIDERS: ATTEND Physician Assistant | DX: R35.0 Frequency of micturition (principal) | CPT/HCPCS: 81002; 87086 ==

== ENCOUNTER 2019-04-11 08:00 | Outpatient (CLI) | payer MEDICARE, OTHER | END 2019-04-11 23:59 | disposition home or self-care (01) | LOC: LAB.R 08:00 | PROVIDERS: ATTEND Physician Assistant | DX: R35.0 Frequency of micturition (principal) | CPT/HCPCS: 87086 ==

== ENCOUNTER 2019-04-18 14:48 | Outpatient (CLI) | payer MEDICARE, OTHER ==
--- NOTE | 2019-04-19 11:05 | CT Report ---
Reason: COPD Procedure Date: 04/18/2019 Accession Number: [id number] / [id number] Procedure: CT - CHEST WO CPT Code: FULL RESULT: EXAM: CT CHEST EXAM DATE: 04/18/2019 03:08 PM. CLINICAL HISTORY: Trouble swallowing. History of bowel obstruction. COPD. COMPARISONS: CHEST 1 VIEW 08/14/2018 11:54 PM. TECHNIQUE: Routine helical CT imaging was performed through the chest. IV contrast: None. Reconstructions: Coronal and sagittal. In accordance with CT protocol optimization, one or more of the following dose reduction techniques were utilized for this exam: automated exposure control, adjustment of mA and/or KV based on patient size, or use of iterative reconstructive technique. FINDINGS: Lungs/Pleura: There are scattered tree-in-bud opacities as well as nodularities, prominently peripherally which measure up to 5 mm. For example: Right upper lobe in image 17 series 4 month 5 mm nodule. Perifissural right upper lobe 3 mm nodule image 25. Right middle lobe 4 mm nodule image 29. Right lower lobe 3 mm nodule image 40. Right lower lobe 3 mm nodule image 41. Right lower lobe 2 mm nodule image 45. Right lower lobe 3 mm nodule image 49. Left lower lobe 4 mm nodule image 45. Left lower lobe 3 mm nodule image 29. Left upper lobe 2 mm nodule image 23. Background emphysematous changes are overall minimal. There is no lobar consolidation. There is no overt pulmonary edema. There is no pleural effusion or pneumothorax. Mediastinum: The aorta is moderately calcified. There are at least moderate three-vessel coronary calcifications. There is no pericardial effusion. There is no mediastinal lymphadenopathy. A prominent subcentimeter right hilar lymph node does not meet size criteria. Bones: No aggressive osseous lesions. Visualized Abdomen: Spleen demonstrates evidence of prior granulomatous disease. Other: A coarsely calcified masslike area seen in the right breast, approximately 1.8 x 1.8 cm, image 11 series 6. Additional calcifications are seen in the cone of breast tissue on the right. Relatively symmetric bilateral axillary lymph nodes do not meet size criteria. IMPRESSION: Correlate right breast findings to mammographic and breast surgical history. Pulmonary nodules as described. Recommend follow-up of the described nodule(s) according to the following guidelines: Fleischner Society Recommendations 2017 MacMahon et al. Radiology 2017 Solid Nodules-Low Risk Patients: <6 mm (single or multiple) - No routine follow-up* Solid Nodules-High Risk Patients: <6 mm (single or multiple) -Optional CT at 12 months* *Nodules < 6mm do not require routine follow-up, but suspicious nodule morphology, upper lobe location, or both may warrant 12 month follow-up RADIA
== END 2019-04-18 14:49 | disposition home or self-care (01) ==
LOC: DI 14:48
PROVIDERS: ATTEND Physician Assistant
DX: R91.8 Other nonspecific abnormal finding of lung field (principal); J43.9 Emphysema, unspecified
CPT/HCPCS: 71250

== ENCOUNTER 2019-05-05 14:00 | Outpatient (CLI) | payer MEDICARE, OTHER ==
--- NOTE | 2019-05-05 16:16 | Mammography Report ---
Reason: RT BREAST LUMP, ABN CT Procedure Date: 05/05/2019 Accession Number: [id number] / [id number] Procedure: [facility] - Diagnostic Dig Bilat CPT Code: FULL RESULT: EXAM: Diagnostic Dig Bilat DATE: 05/05/2019 3:35 PM CLINICAL HISTORY: Nulliparous patient. History of benign right breast biopsy. Recent CT scan 04/18/2019 showed calcifications right breast. TECHNIQUE: (B) - Bilateral CC and MLO views were obtained. COMPARISON: 08/24/2017, 08/05/2015, 02/01/2014, 11/30/2012 and 07/14/2011 PARENCHYMAL PATTERN: (D) - The breasts demonstrate heterogeneously dense fibroglandular parenchyma bilaterally. FINDINGS: Multiple coarse calcifications are seen in both breasts in addition there are increasing punctate punctate calcifications predominantly in the inferior right breast and in the upper outer left breast associated with asymmetric breast tissue stable lymph node left upper outer quadrant. There are no suspicious masses, skin thickening, or areas of distortion. IMPRESSION: Probably Benign. BI-RADS category 3. Bilateral RECOMMENDATION: (6MOS) - Recommend 6 month follow-up exam. Bilateral BI-RADS CATEGORY: (3) - Probably Benign. STANDARD QUALIFYING STATEMENTS: 1. This examination was not reviewed with the aid of Computer-Aided Detection (CAD). 2. A negative or benign imaging report should not preclude biopsy if clinically suspicious findings are present. 3. Dense breasts may obscure an underlying neoplasm. 4. This examination was reviewed with the aid of 3D breast imaging (tomosynthesis).
== END 2019-05-05 14:01 | disposition home or self-care (01) ==
LOC: DI 14:00
PROVIDERS: ATTEND Physician Assistant
DX: N63.11 Unspecified lump in the right breast, upper outer quadrant (principal)
CPT/HCPCS: 77066

== ENCOUNTER 2019-05-21 20:24 | Emergency (ER) | payer MEDICARE, OTHER ==
--- NOTE | 2019-05-21 20:41 | ED Physician Documentation ---
History of Present Illness - Stated complaint Stated Complaint: DIZZINESS,NAUSEA,WEAKNESS - Chief complaint Chief Complaint: Neuro - History obtained from History obtained from: Patient - History of Present Illness Timing: How many days ago (a few days, per patient) Pain level max: 0 Pain level now: 0 Improved by: rest Worsened by: movement - Additonal information Additional information: per patient, feeling ill for a few days, sort of dizzy, my head feels funny, mainly dizzy. described nausea without vomiting. difficulty walking due to dizziness. aching in my joints. Review of Systems Constitutional: reports: Reviewed and negative Eyes: reports: Reviewed and negative Cardiac: reports: Reviewed and negative Respiratory: reports: Reviewed and negative GI: reports: Nausea. 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: Oophrectomy (right for cyst) - Present Medications Home Medications: Ambulatory Orders Medication Instructions Recorded Confirmed Metoprolol Succinate [Toprol Xl] 12.5 mg PO BID 08/14/17 05/21/19 Levothyroxine Sodium [Synthroid] 50 mcg PO QDAC 08/14/18 05/21/19 Atorvastatin Calcium [Lipitor] 80 mg PO QPM 08/15/18 05/21/19 Aspirin [Adult Low Dose Aspirin EC] 1 tab PO DAILY 05/21/19 05/21/19 Meclizine [Antivert] 12.5 mg PO Q6H PRN #20 tablet 05/21/19 Ondansetron Odt [Zofran] 4 mg TL Q6H PRN #10 tablet 05/21/19 - Allergies Allergies/Adverse Reactions: Allergies Allergy/AdvReac Type Severity Reaction Status Date / Time No Known Drug Allergies Allergy Verified 05/21/19 20:31 - Social History Does the pt smoke?: No Smoking Status: Former smoker (Quit 55 years ago.) Does the pt drink ETOH?: No Does the pt have substance abuse?: No - Immunizations Immunizations are current?: Yes - POLST Patient has POLST: No POLST Status: Full Code PD ED PE NORMAL - Vitals Vital signs reviewed: Yes - General General: Alert and oriented X 3, No acute distress, Well developed/nourished - HEENT HEENT: PERRL, EOMI, Moist mucous membranes - Cardiac Cardiac: RRR, No murmur, No gallop, No rub - Respiratory Respiratory: No respiratory distress, Clear bilaterally - Abdomen Abdomen: Soft, Non tender - Derm Derm: Normal color, Warm and dry - Extremities Extremities: No edema - Neuro Neuro: Alert and oriented X 3, 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, No motor deficit, No sensory deficit, Normal speech Eye Opening: Spontaneous Motor: Obeys Commands Verbal: Oriented GCS Score: 15 Results - Vitals Vitals: Oxygen O2 Source Room air - EKG (time done) No standard instances Rate: Rate (enter#) (72) Rhythm: NSR [place]: Normal Intervals: Normal [place] QRS: Normal Ischemia: Normal ST segments - Labs Labs: Laboratory Tests 05/21/19 05/21/19 05/21/19 21:02 21:02 21:02 WBC 4.7 L RBC 3.83 L Hgb 12.4 Hct 37.2 MCV 97.1 MCH 32.4 H MCHC 33.3 RDW 13.0 Plt Count 189 MPV 9.6 Neut # (Auto) 2.1 Lymph # (Auto) 1.7 [place] # (Auto) 0.7 Eos # (Auto) 0.2 Baso # (Auto) 0.1 Absolute Nucleated RBC 0.00 Nucleated RBC % 0.0 Sodium 138 Potassium 4.5 Chloride 98 L Carbon Dioxide 29 Anion Gap 11.0 BUN 16 Creatinine 0.7 Estimated GFR (MDRD) 80 L Glucose 107 H Calcium 9.4 Total Bilirubin 0.7 AST 28 ALT 20 Alkaline Phosphatase 57 Troponin I High Sens 4.0 Total Protein 7.0 Albumin 3.6 Globulin 3.4 Albumin/Globulin Ratio 1.1 Lipase 35 TSH Urine Color Urine Clarity Urine pH Ur Specific [place] Urine Protein Urine Glucose (UA) Urine Ketones Urine Occult Blood Urine Nitrite Urine Bilirubin Urine Urobilinogen Ur Leukocyte Esterase Ur Microscopic Review Urine Culture Comments 05/21/19 05/21/19 21:02 21:24 WBC RBC Hgb Hct MCV MCH MCHC RDW Plt Count MPV Neut # (Auto) Lymph # (Auto) [place] # (Auto) Eos # (Auto) Baso # (Auto) Absolute Nucleated RBC Nucleated RBC % Sodium Potassium Chloride Carbon Dioxide Anion Gap BUN Creatinine Estimated GFR (MDRD) Glucose Calcium Total Bilirubin AST ALT Alkaline Phosphatase Troponin I High Sens Total Protein Albumin Globulin Albumin/Globulin Ratio Lipase TSH 2.50 Urine Color YELLOW Urine Clarity CLEAR Urine pH 5.5 Ur Specific [place] 1.025 Urine Protein NEGATIVE Urine Glucose (UA) NEGATIVE Urine Ketones NEGATIVE Urine Occult Blood NEGATIVE Urine Nitrite NEGATIVE Urine Bilirubin NEGATIVE Urine Urobilinogen 0.2 (NORMAL) Ur Leukocyte Esterase NEGATIVE Ur Microscopic Review NOT INDICATED Urine Culture Comments NOT INDICATED - Rads (name of study) CT head Radiology: Prelim report reviewed, See rad report PD MEDICAL DECISION MAKING - ED course Complexity details: reviewed results, re-evaluated patient, considered differential, d/w patient Departure - Departure Disposition: 01 Home, Self Care Clinical Impression: Dizziness, Nausea Condition: Good Instructions: ED Dizziness UKO, ED Nausea Vomiting Follow-Up: Becka Buchanan PA [Primary Care Provider] - Within 1 week Prescriptions: Meclizine [Antivert] 12.5 mg PO Q6H PRN #20 tablet PRN Reason: Dizziness Ondansetron Odt [Zofran] 4 mg TL Q6H PRN #10 tablet PRN Reason: Nausea / Vomiting Discharge Date/Time: 05/21/19 22:30
[2019-05-21 21:08] LABS: BASOPHILS # (AUTO) 0.1 10^3/uL (0.0-0.1); BASOPHILS % (AUTO) 1.1 %; EOSINOPHILS # (AUTO) 0.2 10^3/uL (0.0-0.7); EOSINOPHILS % (AUTO) 3.4 %; HGB - HEMOGLOBIN 12.4 g/dL (12.0-16.0); LYMPHOCYTES # (AUTO) 1.7 10^3/uL (1.5-3.5); LYMPHOCYTES % (AUTO) 35.5 %; MEAN CORPUSCULAR HEMOGLOBIN 32.4 pg (27.0-31.0); MEAN CORPUSCULAR HGB CONC 33.3 g/dL (32.0-36.0); MEAN CORPUSCULAR VOLUME 97.1 fL (81.0-99.0); MEAN PLATELET VOLUME 9.6 fL (7.9-10.8); MONOCYTES # (AUTO) 0.7 10^3/uL (0.0-1.0); MONOCYTES % (AUTO) 14.7 %; NEUTROPHILS # (AUTO) 2.1 10^3/uL (1.5-6.6); NEUTROPHILS % (AUTO) 45.1 %; PLT - PLATELET COUNT 189 10^3/uL (130-450); RED BLOOD COUNT 3.83 10^6/uL (4.20-5.40); WHITE BLOOD COUNT 4.7 x10^3/uL (4.8-10.8)
[2019-05-21 21:28] LABS: BILIRUBIN,URINE NEGATIVE (NEGATIVE); GLUCOSE, URINE (UA) NEGATIVE (NEGATIVE); KETONES,URINE (UA) NEGATIVE (NEGATIVE); LEUKOCYTE ESTERASE, URINE NEGATIVE (NEGATIVE); NITRITE,URINE NEGATIVE (NEGATIVE); OCCULT BLOOD,URINE NEGATIVE (NEGATIVE); PH,URINE 5.5 PH (5.0-7.5); PROTEIN,URINE NEGATIVE (NEGATIVE); UROBILINOGEN,URINE 0.2 (NORMAL) E.U./dL (NORMAL)
[2019-05-21 21:29] LABS: CLARITY,URINE CLEAR (CLEAR)
[2019-05-21 21:31] LABS: ALBUMIN 3.6 g/dL (3.2-5.5); ALBUMIN/GLOBULIN RATIO 1.1 (1.0-2.2); BILIRUBIN,TOTAL 0.7 mg/dL (0.2-1.0); CALCIUM 9.4 mg/dL (8.5-10.3); CREATININE 0.7 mg/dL (0.4-1.0)
--- NOTE | 2019-05-21 21:34 | CT Report ---
Reason: dizziness, generalized weakness Procedure Date: 05/21/2019 Accession Number: [id number] / [id number] Procedure: CT - HEAD WO CPT Code: FULL RESULT: EXAM: CT HEAD EXAM DATE: 05/21/2019 09:11 PM. CLINICAL HISTORY: Dizziness, generalized weakness. COMPARISON: None. TECHNIQUE: Multiaxial CT images were obtained from the foramen magnum to the vertex. Reformats: Sagittal and coronal. IV contrast: None. In accordance with CT protocol optimization, one or more of the following dose reduction techniques were utilized for this exam: automated exposure control, adjustment of mA and/or KV based on patient size, or use of iterative reconstructive technique. FINDINGS: Parenchyma: There is mild to moderate periventricular white matter hypodensity. Negative for acute hemorrhage. There is no midline shift or mass-effect. Extraaxial Spaces: No subdural or epidural collections identified. Ventricles: Normal in size and position. Sinuses and Orbits: Imaged paranasal sinuses, orbits, and mastoids show no significant abnormality. Bones: No evidence of fracture or calvarial defect. Other: None. IMPRESSION: 1. Negative for intracranial hemorrhage and mass-effect. 2. Mild to moderate nonfocal white matter disease. Nonspecific and most commonly attributed to sequela of chronic microangiopathy. RADIA
[2019-05-21] MEDS ORDERED: MECLIZINE 12.5 MG TABLET PO STA (21:43)
[2019-05-21] MEDS ORDERED: ONDANSETRON ODT 4 MG TABLET TL STA (22:03)
[2019-05-21 22:10] VITALS: BP 150/73
== END 2019-05-21 22:30 | disposition home or self-care (01) ==
LOC: ED 20:24
DX: R42 Dizziness and giddiness (principal); R11.0 Nausea; R53.1 Weakness; I10 Essential (primary) hypertension; Z87.891 Personal history of nicotine dependence; Z79.82 Long term (current) use of aspirin
CPT/HCPCS: 36415; 70450; 81003; 83690; 93005; 99284; A9270; Q0162; 80053; 81001; 84443; 84484; 85025; 87086

== ENCOUNTER 2019-06-16 08:00 | Outpatient (CLI) | payer MEDICARE, OTHER ==
[2019-06-16 12:03] LABS: EOSINOPHILS # (AUTO) 0.1 10^3/uL (0.0-0.7); EOSINOPHILS % (AUTO) 3.3 %; HGB - HEMOGLOBIN 12.6 g/dL (12.0-16.0); LYMPHOCYTES # (AUTO) 1.3 10^3/uL (1.5-3.5); MEAN CORPUSCULAR HEMOGLOBIN 32.2 pg (27.0-31.0); MEAN CORPUSCULAR HGB CONC 33.2 g/dL (32.0-36.0); MEAN CORPUSCULAR VOLUME 96.9 fL (81.0-99.0); MEAN PLATELET VOLUME 10.5 fL (7.9-10.8); MONOCYTES # (AUTO) 0.6 10^3/uL (0.0-1.0); MONOCYTES % (AUTO) 14.3 %; NEUTROPHILS # (AUTO) 1.9 10^3/uL (1.5-6.6); NEUTROPHILS % (AUTO) 47.4 %; PLT - PLATELET COUNT 206 10^3/uL (130-450); RED BLOOD COUNT 3.91 10^6/uL (4.20-5.40); RED CELL DISTRIBUTION WIDTH 13.1 % (12.0-15.0); WHITE BLOOD COUNT 3.9 x10^3/uL (4.8-10.8)
[2019-06-16 12:19] LABS: ALBUMIN 3.8 g/dL (3.2-5.5); ALBUMIN/GLOBULIN RATIO 1.3 (1.0-2.2); ALKALINE PHOSPHATASE 51 IU/L (42-121); ALT ALANINE AMINOTRANSFERASE 20 IU/L (10-60); AST ASPARTATE AMINOTRANSFERASE 28 IU/L (10-42); BILIRUBIN,TOTAL 0.6 mg/dL (0.2-1.0); BUN - BLOOD UREA NITROGEN 15 mg/dL (6-20); CALCIUM 9.5 mg/dL (8.5-10.3); CARBON DIOXIDE - CO2 28 mmol/L (21-32); CHLORIDE 98 mmol/L (101-111); CHOL/HDL RATIO 3.3 (<4.4); CHOLESTEROL 264 mg/dL; CREATININE 0.7 mg/dL (0.4-1.0); GFR - MDRD 80 (>89); GLUCOSE 97 mg/dL (70-100); HDL CHOLESTEROL 79 mg/dL; LDL CHOLESTEROL,CALCULATED 172 mg/dL; LDL/HDL RATIO 2.2 (<4.4); SODIUM 135 mmol/L (135-145); TOTAL PROTEIN 6.8 g/dL (6.7-8.2); VLDL CHOLESTEROL 13 mg/dL
== END 2019-06-16 23:59 | disposition home or self-care (01) ==
LOC: LAB.WCP 08:00
PROVIDERS: ATTEND Physician Assistant
DX: I10 Essential (primary) hypertension (principal); E87.1 Hypo-osmolality and hyponatremia; R53.1 Weakness; M25.50 Pain in unspecified joint
CPT/HCPCS: 36415; 80053; 80061; 83721; 85025; 85651

== ENCOUNTER 2019-06-19 10:17 | Outpatient (CLI) | payer MEDICARE, OTHER | END 2019-06-19 10:18 | disposition home or self-care (01) | LOC: DI 10:17 | PROVIDERS: ATTEND Family Medicine | DX: R06.02 Shortness of breath (principal) | CPT/HCPCS: 93306 ==

== ENCOUNTER 2019-08-16 08:00 | Outpatient (CLI) | payer MEDICARE, OTHER ==
[2019-08-16 19:30] LABS: % IRON SATURATION 29 % (20-50); IRON 99 ug/dL (28-170); TOTAL IRON BINDING CAPACITY 346 ug/dL (250-450); TRANSFERRIN 247 mg/dL (192-382)
[2019-08-16 20:29] LABS: FOLATE > 49.60 ng/mL (5.90 - >24.8)
== END 2019-08-16 08:01 | disposition home or self-care (01) ==
LOC: LAB.WCP 08:00
PROVIDERS: ATTEND Nurse Practitioner Gerontology
DX: D64.9 Anemia, unspecified (principal); R53.82 Chronic fatigue, unspecified; R53.1 Weakness
CPT/HCPCS: 36415; 82607; 82746; 83540; 84466

== ENCOUNTER 2019-11-17 12:42 | Outpatient (CLI) | payer MEDICARE, OTHER ==
--- NOTE | 2019-11-17 16:49 | Mammography Report ---
Reason: 6 MONTH F U - MAMMO CALCIFICATION OF BR Procedure Date: 11/17/2019 Accession Number: [id number] / [id number] Procedure: EVARISTO - Diagnostic Dig Bilat CPT Code: Final Report FULL RESULT: EXAM: Diagnostic Dig Bilat DATE: 11/17/2019 2:40 PM CLINICAL HISTORY: Diagnostic examination. 6 month follow-up of calcifications bilaterally. TECHNIQUE: (B) - Bilateral CC and MLO views were obtained. Bilaterally spot magnified CC views and spot magnified ML views are obtained. Focused left breast ultrasound is performed. COMPARISON: 05/05/2019 through 07/08/2010. PARENCHYMAL PATTERN: (D) - The breast(s) demonstrate(s) heterogeneously dense fibroglandular parenchyma. FINDINGS: Right breast: There are no suspicious masses, calcifications, or areas of distortion. Coarse typically benign calcifications and post surgical changes are redemonstrated. Findings are stable in the interval, typically benign. Left breast: There has been interval increase in architectural distortion with indistinct mass like density and increase in pleomorphic calcifications. Ultrasound of the left breast demonstrates ill-defined hypoechoic shadowing with indistinct borders throughout the lower hemisphere of the breast, suspicious. No mass can be measured by ultrasound as the sonographic beam is attenuated through much of the lower hemisphere, infiltrative appearance. Right breast: IMPRESSION: Benign findings. BI-RADS category 2. RECOMMENDATION: (ANNUAL) - Recommend routine annual screening mammography. BI-RADS CATEGORY: (2) - Benign Findings. Left breast: IMPRESSION: Suspicious findings. BI-RADS category 4. RECOMMENDATION: (BIOPSY) - ultrasound-guided left breast BI-RADS CATEGORY: (4) - Suspicious. STANDARD QUALIFYING STATEMENTS: 1. This examination was not reviewed with the aid of Computer-Aided Detection (CAD). 2. A negative or benign imaging report should not preclude biopsy if clinically suspicious findings are present. 3. Dense breasts may obscure an underlying neoplasm. 4. This examination was reviewed with the aid of 3D breast imaging (tomosynthesis).
== END 2019-11-17 12:43 | disposition home or self-care (01) ==
LOC: DI 12:42
PROVIDERS: ATTEND Physician Assistant
DX: R92.1 Mammographic calcification found on diagnostic imaging of breast (principal)
CPT/HCPCS: 76642; 77066

== ENCOUNTER 2019-11-29 11:48 | Outpatient (CLI) | payer MEDICARE ==
--- NOTE | 2019-11-30 09:21 | DEXA Report ---
Reason: OSTEOPOROSIS Procedure Date: 11/29/2019 Accession Number: [id number] / [id number] Procedure: DEX - Dexa Spine and/or Hip CPT Code: Final Report FULL RESULT: EXAM: Dexa Spine and/or Hip DATE: 11/29/2019 12:29 PM CLINICAL HISTORY: OSTEOPOROSIS TECHNIQUE: Dual energy x-ray absorptiometry (DXA) was performed on a [employer] System. Regions measured are the AP Spine, femoral neck, and if needed forearm. COMPARISON: None. In accordance with the International Society for Clinical Densitometry (ISCD) guidelines, data from previous exams may be reanalyzed using current recommendations and techniques. This is done to allow a more accurate basis for comparison with the current study. FINDINGS: The data for the lumbar spine is as follows: BMD (g/cm/cm) T-SCORE Z-SCORE REGION L1 1.073 -0.5 1.9 L2 1.188 -0.1 2.3 L3 1.151 -0.4 2.0 L4 1.276 0.6 3.0 TOTAL 1.039 -0.3 2.1 NOTE: All evaluable vertebrae are used for classification The data for the hip is as follows: BMD (g/cm/cm) T-SCORE Z-SCORE REGION Neck 0.715 -2.3 0.4 TOTAL 0.714 -2.3 0.3 NOTE: The femoral neck or total proximal femur, whichever is lowest, is used for classification. IMPRESSION: THE WHO CLASSIFICATION BASED ON THE INTERNATIONAL REFERENCE STANDARD IS OSTEOPENIA. THE FRACTURE RISK IS INCREASED. RECOMMENDATION: Patients with diagnosis of osteoporosis or osteopenia should have regular bone mineral density assessment. For those eligible for Medicare, routine testing is allowed once every 2 years. Testing frequency can be increased for patients who have rapidly progressing disease or for those who are receiving medical therapy to restore bone mass. COMMENT: World Health Organization (WHO) definitions for osteoporosis and osteopenia: NORMAL BMD: T-score at -1.0 or higher, fracture risk is low OSTEOPENIA BMD: T-score between -1.0 and -2.5, fracture risk is increased. OSTEOPOROSIS BMD: T-score at -2.5 or lower, fracture risk is high. National Osteoporosis Foundation recommends: 1. Obtain adequate dietary calcium (at least 1200 mg per day) and vitamin D (400-800 international units per day). 2. Participate, as appropriate, in regular weightbearing and muscle-strengthening exercise. 3. Avoid tobacco use and reduce alcohol and caffeine intake. 4. For more detailed information see the website at www.NOF.org.
== END 2019-11-29 11:49 | disposition home or self-care (01) ==
LOC: DI 11:48
PROVIDERS: ATTEND Family Medicine
DX: Z13.820 Encounter for screening for osteoporosis (principal); M85.89 Other specified disorders of bone density and structure, multiple sites
CPT/HCPCS: 77080

== ENCOUNTER 2019-12-01 07:42 | Outpatient (CLI) | payer MEDICARE, OTHER ==
[2019-12-01] MEDS ORDERED: BUFFERED LIDOCAINE 10 ML SYRINGE ONE (07:49)
[2019-12-01] MEDS ORDERED: BUFFERED LIDOCAINE 10 ML SYRINGE IU ONE (09:15)
--- NOTE | 2019-12-01 09:55 | Ultrasound Report ---
Reason: ABN MAMMO - LT BREAST MASS Procedure Date: 12/01/2019 Accession Number: [id number] / [id number] Procedure: US - Biopsy Breast Core CPT Code: Final Report FULL RESULT: PROCEDURE: Ultrasound-guided needle biopsy left breast mass. CLINICAL DATA: Targeted mass with a geographic diffuse shadowing and no distinct border in lower hemisphere of the left breast. Informed consent was obtained. Using standard aseptic technique, 1% buffered was injected into the left breast for local anesthesia. A small sabrina was made in the skin with a #11 blade. A 12-gauge [email or web address] vacuum-assisted device was used to obtain 4 specimens. A specialized biopsy marker clip was placed into the biopsy cavity under ultrasound guidance. The patient was taken to separate mammography machine and a two-view digital mammography was performed to verify the clip placement and any complications. The mammography showed clip placement along the posterior margin of the inferior breast cone on lateral view and along the posterior margin of the breast cone centrally on CC projection corresponding to architectural distortion and fine calcifications. The wound was dressed and ice applied. The patient was observed for approximately 15 minutes, then was discharged from diagnostic imaging Department in good condition following instructions on wound care and obtaining biopsy results. The patient is scheduled to receive the biopsy results from the referring physician. The tissue was sent for histologic analysis. IMPRESSION: Ultrasound-guided biopsy of the breast. AN ADDENDUM WILL BE MADE TO THIS REPORT WHEN PATHOLOGY IS REVIEWED TO ESTABLISH CONCORDANCE.
== END 2019-12-01 07:43 | disposition home or self-care (01) ==
LOC: DI 07:42
PROVIDERS: ATTEND Physician Assistant
DX: N60.22 Fibroadenosis of left breast (principal)
CPT/HCPCS: 19083

== ENCOUNTER 2019-12-25 14:14 | Outpatient (CLI) | payer MEDICARE, OTHER ==
[2019-12-25 11:57] LABS: BASOPHILS # (AUTO) 0.1 10^3/uL (0.0-0.1); BASOPHILS % (AUTO) 1.3 %; EOSINOPHILS # (AUTO) 0.2 10^3/uL (0.0-0.7); EOSINOPHILS % (AUTO) 4.1 %; HGB - HEMOGLOBIN 12.6 g/dL (12.0-16.0); LYMPHOCYTES # (AUTO) 1.1 10^3/uL (1.5-3.5); LYMPHOCYTES % (AUTO) 27.6 %; MEAN CORPUSCULAR HEMOGLOBIN 31.9 pg (27.0-31.0); MEAN CORPUSCULAR HGB CONC 32.6 g/dL (32.0-36.0); MEAN CORPUSCULAR VOLUME 97.7 fL (81.0-99.0); MEAN PLATELET VOLUME 10.6 fL (7.9-10.8); MONOCYTES # (AUTO) 0.5 10^3/uL (0.0-1.0); MONOCYTES % (AUTO) 13.4 %; NEUTROPHILS # (AUTO) 2.1 10^3/uL (1.5-6.6); NEUTROPHILS % (AUTO) 53.6 %; PLT - PLATELET COUNT 186 10^3/uL (130-450); RED BLOOD COUNT 3.95 10^6/uL (4.20-5.40); RED CELL DISTRIBUTION WIDTH 12.8 % (12.0-15.0)
[2019-12-25 12:31] LABS: ALBUMIN 3.6 g/dL (3.2-5.5); ALBUMIN/GLOBULIN RATIO 1.1 (1.0-2.2); ALKALINE PHOSPHATASE 47 IU/L (42-121); ALT ALANINE AMINOTRANSFERASE 20 IU/L (10-60); AST ASPARTATE AMINOTRANSFERASE 30 IU/L (10-42); BILIRUBIN,TOTAL 0.8 mg/dL (0.2-1.0); BUN - BLOOD UREA NITROGEN 16 mg/dL (6-20); CALCIUM 9.1 mg/dL (8.5-10.3); CARBON DIOXIDE - CO2 30 mmol/L (21-32); CHLORIDE 99 mmol/L (101-111); CHOL/HDL RATIO 2.6 (<4.4); CHOLESTEROL 206 mg/dL; CREATININE 0.7 mg/dL (0.4-1.0); GFR - MDRD 80 (>89); GLUCOSE 99 mg/dL (70-100); HDL CHOLESTEROL 79 mg/dL; LDL CHOLESTEROL,CALCULATED 114 mg/dL; LDL/HDL RATIO 1.4 (<4.4); SODIUM 135 mmol/L (135-145); TOTAL PROTEIN 6.8 g/dL (6.7-8.2); VLDL CHOLESTEROL 13 mg/dL
== END 2019-12-25 23:59 | disposition home or self-care (01) ==
LOC: LAB.WCP 14:14
PROVIDERS: ATTEND Family Medicine
DX: E78.49 Other hyperlipidemia (principal); Z79.899 Other long term (current) drug therapy
CPT/HCPCS: 36415; 80053; 80061; 83721; 84443; 85025

== ENCOUNTER 2020-08-08 11:10 | Outpatient (CLI) | payer MEDICARE, OTHER ==
--- NOTE | 2020-08-09 16:47 | Mammography Report ---
UNILATERAL LEFT DIGITAL DIAGNOSTIC MAMMOGRAM 3D/2D: 08/08/2020 CLINICAL: 6 month follow-up biopsy. Comparison is made to exams dated: 12/01/2019 mammogram, 12/01/2019 ultrasound, 11/17/2019 ultrasound, 11/17/2019 mammogram, 05/05/2019 mammogram, and 08/24/2017 mammogram - [facility]. Th e tissue of left breast is heterogeneously dense. This may lower the sensitivity of mammography. No significant masses, calcifications, or other findings are seen in the breast. Dsytrophic calcifica tions in the left breast. Biopsy clip at 4:00 middle depth. No mass or suspicious calcification seen. IMPRESSION: BENIGN There is no mammographic evidence of malignancy. No mass or suspicious calcifications in the left anuel ast at the biopsy site. Continued follow-up mammogram and possible ultrasound in approximently 6 months is recommended to dem onstrate stability. Patient will also be due for the right breast mammogram This exam was interpreted at Station ID: [id number]. NOTE: For mammograms, a report in lay terms will be sent to the patient. Approximately 15% of breast malignancies will not be visualized mammographically. In the management of a palpable breast mass, a negative mammogram must not discourage biopsy of a clinically suspicious lesion. Electronically Signed By: Evelio Rainey M.D. slc/:08/08/2020 13:39:48 ACR BI-RADS Category 2: Benign Finding(s) 3342F PARENCHYMAL PATTERN: (D) - The breast(s) demonstrate(s) heterogeneously dense fibroglandular junior garner. BI-RADS CATEGORY: (2) - 2 Mammogram [id number] 6 month follow-up LATERALITY: (B)
== END 2020-08-08 11:11 | disposition home or self-care (01) ==
LOC: DI 11:10
PROVIDERS: ATTEND Family Medicine
DX: R92.1 Mammographic calcification found on diagnostic imaging of breast (principal)

== ENCOUNTER 2021-01-10 07:00 | Outpatient (CLI) | payer MEDICARE, OTHER ==
[2021-01-10 13:25] LABS: BASOPHILS # (AUTO) 0.1 10^3/uL (0.0-0.1); BASOPHILS % (AUTO) 1.3 %; EOSINOPHILS # (AUTO) 0.2 10^3/uL (0.0-0.7); EOSINOPHILS % (AUTO) 3.6 %; HCT - HEMATOCRIT 40.1 % (37.0-47.0); HGB - HEMOGLOBIN 12.9 g/dL (12.0-16.0); LYMPHOCYTES # (AUTO) 1.3 10^3/uL (1.5-3.5); MEAN CORPUSCULAR HEMOGLOBIN 31.9 pg (27.0-31.0); MEAN CORPUSCULAR HGB CONC 32.2 g/dL (32.0-36.0); MEAN PLATELET VOLUME 10.6 fL (7.9-10.8); MONOCYTES # (AUTO) 0.5 10^3/uL (0.0-1.0); MONOCYTES % (AUTO) 11.4 %; NEUTROPHILS # (AUTO) 2.7 10^3/uL (1.5-6.6); NEUTROPHILS % (AUTO) 55.7 %; PLT - PLATELET COUNT 195 10^3/uL (130-450); RED BLOOD COUNT 4.05 10^6/uL (4.20-5.40); WHITE BLOOD COUNT 4.8 x10^3/uL (4.8-10.8)
[2021-01-10 13:51] LABS: ALBUMIN 3.8 g/dL (3.2-5.5); ALBUMIN/GLOBULIN RATIO 1.2 (1.0-2.2); ALKALINE PHOSPHATASE 59 IU/L (42-121); ALT ALANINE AMINOTRANSFERASE 19 IU/L (10-60); AST ASPARTATE AMINOTRANSFERASE 29 IU/L (10-42); BILIRUBIN,TOTAL 0.7 mg/dL (0.2-1.0); BUN - BLOOD UREA NITROGEN 16 mg/dL (6-20); CALCIUM 9.3 mg/dL (8.5-10.3); CARBON DIOXIDE - CO2 30 mmol/L (21-32); CHLORIDE 97 mmol/L (101-111); CHOLESTEROL 245 mg/dL; CK- CREATINE KINASE 47 IU/L (22-269); CREATININE 0.7 mg/dL (0.4-1.0); GFR - MDRD 79 (>89); GLUCOSE 119 mg/dL (70-100); HDL CHOLESTEROL 75 mg/dL; LDL CHOLESTEROL,CALCULATED 156 mg/dL; POTASSIUM 4.3 mmol/L (3.5-5.0); SODIUM 135 mmol/L (135-145); TRIGLYCERIDES 72 mg/dL; VLDL CHOLESTEROL 14 mg/dL
[2021-01-10 13:52] LABS: CHOL/HDL RATIO 3.3 (<4.4); LDL/HDL RATIO 2.1 (<4.4)
[2021-01-10 13:58] LABS: CRP - C-REACTIVE PROTEIN < 1.0 mg/dL (0-1.0)
[2021-01-10 14:02] LABS: THYROID STIMULATING HORMONE 3.31 uIU/mL (0.34-5.60)
[2021-01-10 14:50] LABS: ESTIMATED AVERAGE GLUCOSE 114 mg/dL (70-100); HEMOGLOBIN A1c% 5.6 % (4.27-6.07)
== END 2021-01-10 23:59 | disposition home or self-care (01) ==
LOC: LAB.WCP 07:00
PROVIDERS: ATTEND Internal Medicine
DX: I10 Essential (primary) hypertension (principal); M79.10 Myalgia, unspecified site; E03.9 Hypothyroidism, unspecified; D64.9 Anemia, unspecified; R73.01 Impaired fasting glucose
CPT/HCPCS: 36415; 80053; 80061; 82550; 83036; 83721; 84443; 85025; 85651; 86140

== ENCOUNTER 2021-01-15 11:10 | Outpatient (CLI) | payer MEDICARE, OTHER ==
--- NOTE | 2021-01-16 14:18 | Mammography Report ---
BILATERAL DIGITAL DIAGNOSTIC MAMMOGRAM 3D/2D: 01/15/2021 CLINICAL: Patient returns for 6 month follow up on left breast for calcifications. Comparison is made to exams dated: 08/08/2020 mammogram, 12/01/2019 mammogram, 12/01/2019 ultrasound, ultrasound, 11/17/2019 mammogram, and 05/05/2019 mammogram - [facility]. The tissue of both breasts is heterogeneously dense. This may lower the sensitivity of mammography. There are diffuse punctate calcifications in both breasts that are not significantly changed. There also are benign coarse and dystrophic calcifications with biopsy marking clip in the left breast in t he middle depth in the upper aspect that are not significantly changed. The biopsy demonstrated antonio gn pathology. No significant masses, calcifications, or other findings are seen in either breast. IMPRESSION: BENIGN There is no mammographic evidence of malignancy. A follow-up mammogram in 6 months is recommended to demonstrate freelance translator stability for bilateral breast calcifications. If stable, the patient can retu rn to annual screening schedule at that time. Findings and recommendations were conveyed to the patient during today's evaluation. This exam was interpreted at Station ID: [id number]. NOTE: For mammograms, a report in lay terms will be sent to the patient. Approximately 15% of breast malignancies will not be visualized mammographically. In the management of a palpable breast mass, a negative mammogram must not discourage biopsy of a clinically suspicious lesion. Electronically Signed By: Kayode Garrett M.D. aty/:01/15/2021 12:21:51 ACR BI-RADS Category 2: Benign Finding(s) 3342F PARENCHYMAL PATTERN: (D) - The breast(s) demonstrate(s) heterogeneously dense fibroglandular junior garner. BI-RADS CATEGORY: (2) - 2 Mammogram [id number] 6 month follow-up LATERALITY: (B)
== END 2021-01-15 11:11 | disposition home or self-care (01) ==
LOC: DI 11:10
PROVIDERS: ATTEND Internal Medicine
DX: R92.1 Mammographic calcification found on diagnostic imaging of breast (principal)

== ENCOUNTER 2021-08-06 10:52 | Outpatient (CLI) | payer MEDICARE, OTHER ==
--- NOTE | 2021-08-07 11:50 | Mammography Report ---
BILATERAL DIGITAL DIAGNOSTIC MAMMOGRAM 3D/2D: 08/06/2021 CLINICAL: Patient returns for a 6 month follow up of the left breast, due for bilateral exam. Comparison is made to exams dated: 01/15/2021 mammogram, 08/08/2020 mammogram, 12/01/2019 mammogram, ultrasound, 11/17/2019 ultrasound, 11/17/2019 mammogram, 05/05/2019 mammogram, 08/24/2017 mammogr - [facility]. The tissue of both breasts is heterogeneously dense. This may low er the sensitivity of mammography. There are grouped and possibly segmental fine punctate calcifications in the left breast at 5 o'clock anterior depth. These are progressively increased in number of calcifications over time. No other significant masses, calcifications, or other findings are seen in either breast. IMPRESSION: SUSPICIOUS OF MALIGNANCY The grouped and possibly segmental fine punctate calcifications in the left breast are progressively increased in number and at a low suspicion for malignancy. A stereotactic biopsy is recommended. The findings were discussed with the patient at the conclusion of the study by Dr. Mao. This exam was interpreted at Station ID: [id number]. NOTE: For mammograms, a report in lay terms will be sent to the patient. Approximately 15% of breast malignancies will not be visualized mammographically. In the management of a palpable breast mass, a negative mammogram must not discourage biopsy of a clinically suspicious lesion. Electronically Signed By: Maxime Kaufman M.D. ddp/:08/06/2021 12:09:02 ACR BI-RADS Category 4a: Suspicious abnormality - low suspicion for malignancy 3344F PARENCHYMAL PATTERN: (D) - The breast(s) demonstrate(s) heterogeneously dense fibroglandular junior garner. BI-RADS CATEGORY: (4a) - Low Susp None [id number] Immediate follow-up LATERALITY: ()
== END 2021-08-06 10:53 | disposition home or self-care (01) ==
LOC: DI 10:52
PROVIDERS: ATTEND Internal Medicine
DX: R92.1 Mammographic calcification found on diagnostic imaging of breast (principal); Z80.3 Family history of malignant neoplasm of breast

== ENCOUNTER 2021-08-19 09:36 | Outpatient (CLI) | payer MEDICARE, OTHER ==
[~2021-08-19 09:36] MED LIST: BUFFERED LIDOCAINE 10 ML SYRINGE ONE
--- NOTE | 2021-08-22 07:46 | Mammography Report ---
DIGITAL TOMOGRAPHIC MAMMOGRAPHY GUIDED STEREOTACTIC GUIDED BIOPSY LEFT BREAST WITH MARKING DEVICE INS ERTED AND POST MAMMOGRAPHIC IMAGIN08/19/2021 CLINICAL: Microcalcifications left breast. Correlation is made to exams dated: 08/06/2021 mammogram, 01/15/2021 mammogram, 08/08/2020 mammogram, mammogram, 12/01/2019 ultrasound, and 11/17/2019 ultrasound - Merged with [facility]. A stereotactic guided biopsy was performed for the area of grouped and segmental calcifications locat ed in the left breast at 5 o'clock anterior depth. This was described on the previous mammography re port. The skin was prepped in the usual manner. Local anesthetic was administered to the access sit e. A skin sabrina was made in the breast. The abnormality was approached from the craniocaudal aspect using an upright digital tomographic mammography unit. A 10 gauge biopsy needle was placed adjacent to the abnormality under computer guidance and confirmatory stereotactic mammography images were obta ined to document needle placement. Once the needle was documented to be in the correct location, six specimens were obtained using Siemens upright tomosynthesis biopsy unit. A clip was inserted into t he biopsy cavity. A sterile dressing was applied to the access site. Post procedure mammographic im aging demonstrates the location device at the targeted area. The specimens were sent to [facility] for pathological analysis. IMPRESSION: STEREOTACTIC GUIDED BIOPSY BENIGN Stereotactic guided biopsy of the area of grouped and segmental calcifications in the left breast at 5 o'clock anterior depth was successful. Pathology indicates benign stromal fibrosis with micro-calc ifications present. Pathology results are concordant with imaging findings. A follow-up left mammogram in 6 months is recommended to demonstrate stability. This exam was interpreted at Station ID: [id number]. Kayode Garrett M.D. aty/:08/21/2021 19:46:17 BI-RADS CATEGORY: () - Mammogram [id number] 6 month follow-up LATERALITY: (L)
== END 2021-08-19 09:37 | disposition home or self-care (01) ==
LOC: DI 09:36
PROVIDERS: ATTEND Internal Medicine
DX: N60.32 Fibrosclerosis of left breast (principal); R92.0 Mammographic microcalcification found on diagnostic imaging of breast
CPT/HCPCS: 19081

== ENCOUNTER 2021-08-26 11:06 | Outpatient (CLI) | payer MEDICARE, OTHER ==
[2021-08-26 18:15] LABS: ALT ALANINE AMINOTRANSFERASE 16 IU/L (10-60); BUN - BLOOD UREA NITROGEN 12 mg/dL (6-20); CALCIUM 9.3 mg/dL (8.5-10.3); CARBON DIOXIDE - CO2 30 mmol/L (21-32); CHLORIDE 99 mmol/L (101-111); CHOL/HDL RATIO 2.9 (<4.4); CHOLESTEROL 215 mg/dL; CREATININE 0.6 mg/dL (0.4-1.0); GFR - MDRD 95 (>89); GLUCOSE 114 mg/dL (70-100); HDL CHOLESTEROL 73 mg/dL; LDL CHOLESTEROL,CALCULATED 126 mg/dL; LDL/HDL RATIO 1.7 (<4.4); POTASSIUM 4.2 mmol/L (3.5-5.0); SODIUM 137 mmol/L (135-145); TRIGLYCERIDES 80 mg/dL; VLDL CHOLESTEROL 16 mg/dL
[2021-08-26 19:56] LABS: ESTIMATED AVERAGE GLUCOSE 117 mg/dL (70-100); HEMOGLOBIN A1c% 5.7 % (4.27-6.07)
== END 2021-08-26 23:59 | disposition home or self-care (01) ==
LOC: LAB.WCP 11:06
PROVIDERS: ATTEND Internal Medicine
DX: E78.5 Hyperlipidemia, unspecified (principal); R73.01 Impaired fasting glucose
CPT/HCPCS: 36415; 80048; 80061; 83036; 83721; 84460

== ENCOUNTER 2021-10-16 09:50 | Outpatient (CLI) | payer MEDICARE, OTHER ==
[2021-10-16 12:22] LABS: HGB - HEMOGLOBIN 12.8 g/dL (12.0-16.0); RED BLOOD COUNT 4.04 10^6/uL (4.20-5.40); WHITE BLOOD COUNT 4.3 x10^3/uL (4.8-10.8)
[2021-10-16 12:23] LABS: BASOPHILS # (AUTO) 0.1 10^3/uL (0.0-0.1); BASOPHILS % (AUTO) 1.4 %; EOSINOPHILS # (AUTO) 0.1 10^3/uL (0.0-0.7); EOSINOPHILS % (AUTO) 2.3 %; HCT - HEMATOCRIT 39.7 % (37.0-47.0); LYMPHOCYTES # (AUTO) 1.2 10^3/uL (1.5-3.5); LYMPHOCYTES % (AUTO) 28.4 %; MEAN CORPUSCULAR HEMOGLOBIN 31.7 pg (27.0-31.0); MEAN CORPUSCULAR HGB CONC 32.2 g/dL (32.0-36.0); MEAN CORPUSCULAR VOLUME 98.3 fL (81.0-99.0); MEAN PLATELET VOLUME 10.8 fL (7.9-10.8); MONOCYTES # (AUTO) 0.5 10^3/uL (0.0-1.0); MONOCYTES % (AUTO) 10.6 %; NEUTROPHILS # (AUTO) 2.5 10^3/uL (1.5-6.6); NEUTROPHILS % (AUTO) 57.3 %; PLT - PLATELET COUNT 223 10^3/uL (130-450); RED CELL DISTRIBUTION WIDTH 13.1 % (12.0-15.0); SLIDE REVIEW? Not Indicated
[2021-10-16 13:31] LABS: CALCIUM 9.4 mg/dL (8.5-10.3); CREATININE 0.7 mg/dL (0.4-1.0); POTASSIUM 4.1 mmol/L (3.5-5.0)
[2021-10-16 14:29] LABS: THYROID STIMULATING HORMONE 8.19 uIU/mL (0.34-5.60)
[2021-10-16 15:03] LABS: FREE T4 (FREE THYROXINE) 0.93 ng/dL (0.58-1.64)
== END 2021-10-16 23:59 | disposition home or self-care (01) ==
LOC: LAB.WCP 09:50
PROVIDERS: ATTEND Internal Medicine
DX: I10 Essential (primary) hypertension (principal); E03.9 Hypothyroidism, unspecified
CPT/HCPCS: 36415; 80048; 84439; 84443; 85025

== ENCOUNTER 2021-11-14 11:51 | Emergency (ER) | payer MEDICARE, OTHER ==
[2021-11-14] MEDS ORDERED: PROPARACAINE 0.5% OPHTH DROPS 15 ML EACHEYE STA (12:19)
--- NOTE | 2021-11-14 12:53 | ED Physician Documentation ---
History of Present Illness - Stated complaint Stated Complaint: BILAT EYE PX - Chief complaint Chief Complaint: Heent - Additonal information Additional information: 86-year-old female presents to the emergency department for evaluation of b ilateral eye discomfort. She reports that yesterday afternoon she began having itching in both of her eyes. They itch to such an extent she rubbed them and now she has some clear discharge as well as mild discomfort and redness around her eyes. No loss of vision or visual field deficits. She does have some mild blurry vision. No recent cough cold or congestion. Does not wear contact lenses but occasionally does wear reading glasses. She denies eye pain. Review of Systems Constitutional: denies: Fever, Chills Eyes: reports: Discharge, Irritation. denies: Loss of vision, Decreased vision, Photophobia Ears: reports: Reviewed and negative Nose: reports: Reviewed and negative Throat: reports: Reviewed and negative Cardiac: reports: Reviewed and negative Respiratory: reports: Reviewed and negative PD PAST MEDICAL HISTORY - Past Medical History Cardiovascular: Hypertension, High cholesterol Respiratory: None Neuro: None Endocrine/Autoimmune: HyPOthyroidism GI: None GAS APPLIANCE SERVICER: Ovarian cysts (right oophorectomy age 31) : None HEENT: None Psych: None Musculoskeletal: None Derm: None - Past Surgical History Past Surgical History: Yes General: Appendectomy (at time of oophorectomy age 31 yrs), Colonoscopy, Other (Ex Lap for tumor removal age 19 yrs) /GAS APPLIANCE SERVICER: Oophrectomy (right for cyst) - Present Medications Home Medications: Ambulatory Orders Medication Instructions Recorded Confirmed Metoprolol Succinate [Toprol Xl] 12.5 mg PO BID 08/14/17 05/21/19 Levothyroxine Sodium [Synthroid] 50 mcg PO QDAC 08/14/18 05/21/19 Atorvastatin Calcium [Lipitor] 80 mg PO QPM 08/15/18 05/21/19 Aspirin [Adult Low Dose Aspirin EC] 1 tab PO DAILY 05/21/19 05/21/19 Meclizine [Antivert] 12.5 mg PO Q6H PRN #20 tablet 05/21/19 Ondansetron Odt [Zofran] 4 mg TL Q6H PRN #10 tablet 05/21/19 Olopatadine HCl [Pataday] 5 ml OP BID #5 ml 11/14/21 - Allergies Allergies/Adverse Reactions: Allergies Allergy/AdvReac Type Severity Reaction Status Date / Time No Known Drug Allergies Allergy Verified 11/14/21 12:15 - Social History Does the pt smoke?: No Smoking Status: Former smoker (Quit 55 years ago.) Does the pt drink ETOH?: No Does the pt have substance abuse?: No - Immunizations Immunizations are current?: Yes - POLST Patient has POLST: No POLST Status: Full Code PD ED PE EXPANDED - General General: Alert, No acute distress, Well developed/nourished - Eyes Eyes: PERRL, Normal accommodation, EOMI, Injected conj/sclera, Exudate (Clear watery drainage bilaterally), Anterior chambers clear. No: Eyelid injury, Eyelid swelling, Eyelid erythema, Corneal abrasion, Corneal ulcer, Fluorescein uptake (Negative bilaterally), Hyphema, Papilledema - Derm Derm: Normal color, Warm and dry Results - Vitals Vitals: Vital Signs - 24 hr 11/14/21 12:10 Temperature 35.7 C L Heart Rate 76 Respiratory 16 Rate Blood Pressure 142/64 H O2 Saturation 96 Oxygen O2 Source Room air PD MEDICAL DECISION MAKING - ED course Complexity details: reviewed results, re-evaluated patient, d/w patient ED course: 86-year-old female comes to the emergency department for evaluation of cute onset bilateral eye discomfort that began yesterday afternoon and is itching. She reports that for a period of time she was rubbing her eyes extensively fol lowing this she has had persistent clear watery drainage as well as some mild redness around her eyes. There was no loss of vision or visual field deficits. No diplopia fevers or congestion. On exam her visual acuity is preserved bilaterally. Fluorescein uptake was negative. Anterior chambers were clear. No pain with eye movement or significant swelling or erythema. doubt orbital or periorbital cellulitis. No rash and givne bilateral nature, doubt ocular shingles I suspect that she likely had an allergic conjunctivitis. Patient is being prescribed Zaditor eyedrops. I have advised her to use these twice daily and I would expect improved symptoms in the next 12 to 24 hours. She is advised to use a cool compress if she finds eye discomfort or itchiness. She does have an engine boss in [place] that she will arrange to schedule follow-up with next week. Otherwise emergent return precautions were discussed. Departure - Departure Disposition: Home, Self Care Clinical Impression: Allergic conjunctivitis Qualifiers: Laterality: bilateral Qualified Code(s): H10.13 - Acute atopic conjunctivitis, bilateral Condition: Stable Record reviewed to determine appropriate education?: Yes Instructions: ED Allergic Conjunctivitis Prescriptions: Olopatadine HCl [Pataday] 5 ml OP BID #5 ml Comments: Mallory you are seen in the emergency department today for bilateral eye discomfort. It began yesterday with itchiness in both your eyes. As we discussed at the bedside there were no worrisome findings on your screening exam. No corneal abrasions or ulcerations. Your visual acuity is normal for your age. I suspect that you have developed what is called allergic conjunctivitis. Please fill the prescription for the Pataday eyedrops. This has been sent electronically to the [facility] in [place]. Use of these drops should improve your discomfort over the next 24 to 48 hours. If you find that your eyes are uncomfortable or itching I do recommend you place a cool compress over them. At any point you find that your symptoms are worsening, you have loss of vision such as a curtain closing, have double vision, sudden headache please return immediately to the ER. I do recommend that you try and follow-up with your engine boss within the next week.
[2021-11-14 13:19] VITALS: BP 157/73
== END 2021-11-14 13:17 | disposition home or self-care (01) ==
LOC: ED 11:51
DX: H10.13 Acute atopic conjunctivitis, bilateral (principal); Z87.891 Personal history of nicotine dependence
CPT/HCPCS: 99282; 99283; J3490

== ENCOUNTER 2022-01-08 12:16 | Outpatient (CLI) | payer MEDICARE, OTHER ==
[~2022-01-08 12:16] MED LIST changes: +AMINOPHYLLINE 500 MG/20 ML VIAL ONE; -BUFFERED LIDOCAINE 10 ML SYRINGE ONE
--- NOTE | 2022-01-08 13:12 | CARDIAC PROCEDURE NOTE ---
Stress Test Report Service Date: 01/08/22 Service Time: 12:30 Ordering Provider: Enrique Agudelo MD Indication for Test: Assess for an ischemic contribution to exertional dyspnea and fatigue. Significant Medical History: Mallory is referred for a pharmacologic stress MPS today, to assess progressive exertional intolerance. She underwent a diagnostic echocardiogram at [facility] in 2019, also for evaluation of shortness of breath. At that time she had been diagnosed with paroxysmal atrial fibrillation. The echocardiogram showed normal left ventricular systolic function but impaired relaxation with evidence of grade 1 diastolic dysfunction. She tells me that [facility] and is able to do her own housework, though at times has to pace herself to complete more active tasks. She used to walk in her neighborhood on a circular route, approximately 1/4 mile in length, doing up to 4 laps. She was tolerating this okay last summer but as the weather changed she fell out of the habit of doing the walking and does not have the energy to resume at this point in the early spring. She reports continuing to experience occasional palpitation episodes, mostly at night, and that she is not on an anticoagulant for stroke prophylaxis. She experiences dyspnea with minimal to moderate exertion, though no resting or positional dyspnea and she endorses only rare chest discomfort episodes (last about 8 months ago) to my interview. Cardiac Risk Factors: Positive for hyperlipidemia and family history of coronary heart disease, including her father and sister, who both experienced myocardial infarction in their late 70s; she has no known diagnosis of hypertension or diabetes. She smoked cigarettes for a few years in her early 20's, but quit over 60 years ago. Type of Stress Test: Pharmacologic Stress Test with MPI Pharmacologic Agent: Lexiscan Procedure: -Pharmacologic Stress Test- After signing informed consent, the patient underwent rest SPECT imaging and then performed a walking Lexiscan pharmacologic stress test. After obtaining resting vital signs and EKG (resting), the patient walked for 2 minutes (without elevation) at 0.8 mph ("baseline") followed by injection of Lexiscan and high dose 99Tc-Myoview with an additional 2 minutes of walking ("peak" reassessment) followed by monitoring for an additional 4 minutes ("recovery"). The test was terminated due to completing the protocol. Resting heart rate (HR): 85 Baseline HR: 105 Peak HR: 125 Normal HR resp onse. Resting BP: 127/80 Baseline BP: 165/84 Peak BP: 169/83 Normal BP response to walking and Lexiscan. Rhythm during testing: Sinus rhythm throughout, with rare isolated PACs and PVCs. Symptoms: Patient experienced mild dyspnea prior to receiving Lexiscan; after injection the dyspnea increased and became accompanied by aching of her legs, arms and chest, with headache. There was some decrease in symptom intensity with rest and drinking some coffee. EKG at rest showed normal sinus rhythm with borderline first degree AV block and < [address] elevation in some leads, most likely a benign early repolarization variant. EKG at peak stress showed no ischemia by EKG criteria. In Recovery HR and BP decreased to near baseline levels. Nuclear imaging was performed at rest and with stress. Image interpretation will be reported separately. Sunil Clements MD, was present throughout this walking Lexiscan stress study and supervised it in its entirety. Summary: 1) Normal resting EKG. 2) Adequate stress was likely achieved. 3) Normal BP response to pharmacologic agent. 4) No ischemic changes by EKG criteria were seen at peak stress. 5) Analysis of gated nuclear images reveals normal left ventricular size and systolic function; SPECT analysis reveals a small fixed perfusion defect in the anterior wall, that does not normalize with prone imaging, thus most consistent with a small infarct. There is an adjacent area with mildly reduced perfusion during stress, that most likely represents a small area of humberto-infarct ischemia. See separate report for more detail. CONCLUSIONS: 1) Abnormal walking Lexiscan stress myocardial perfusion imaging study, with a likely small prior anterior infarct and an adjacent area of humberto-scar ischemia. 2) The abnormal findings appear to be rather limited and it is reasonable to assume that other factors, for example frailty and previously documented diastolic functional abnormality, may be contributing to patient's reduced exertional tolerance.
[2022-01-08] MEDS ORDERED: REGADENOSON 0.4 MG/5 ML SYRINGE IVP ONE ×2 (14:33→15:49)
[2022-01-08] MEDS ORDERED: AMINOPHYLLINE 500 MG/20 ML VIAL ONE (14:33)
--- NOTE | 2022-01-08 17:12 | Nuclear Medicine Report ---
PROCEDURE: Rest and exercise myocardial perfusion SPECT with gated imaging and ejection fraction INDICATIONS: LEXISCAN - CHEST DISCOMFORT RADIOPHARMACEUTICAL: 11.4 mCi Tc-99m Myoview IV at rest and 36.58 mCi Tc-99m Myoview IV at peak exer cise. [id number] was performed. TECHNIQUE: Radiopharmaceutical was injected at peak stress test, and also at rest. SPECT images wer e obtained. SPECT myocardial perfusion images were displayed in short axis, horizontal long axis, an d vertical long axis views. Gated images were reviewed using Auto[employer] software. COMPARISON: None available. FINDINGS: Raw data: There is good myocardial labeling by radiotracer. No significant motion artifacts. Lung- to-heart ratio is 0.29 (normal is less than 0.46 for tetrafosmin tracer). Left ventricle function: Gated images demonstrate normal left ventricle wall thickening. No segment al wall motion abnormality. No transient ischemic dilation; TID is 0.91 (normal less than 1.30). Th e left ventricle resting end-diastolic volume is 39 mL. Left ventricle stress ejection fraction is 9 4%; normal values are above 45%. Myocardial perfusion: There is normal distribution of activity in the left and right ventricular bessy cardium. There is a small fixed perfusion defect in the mid anterior wall. The fixed perfusion defect of the anterior wall does not normalize in the prone position and is compatible with a small infarct . There is a small, mildly intense, reversible perfusion defect in the anterior wall adjacent to the fixed perfusion defect compatible with humberto-infarct ischemia. IMPRESSION: 1. Abnormal myocardial perfusion study demonstrating small anterior wall infarct with mild humberto-infar ct ischemia. 2. Normal left ventricular function with no segmental wall motion abnormalities and normal stress LVE F of 94%.] PQRS ATTESTATIONS: Measure 322 - Is this imaging test primarily performed on a low-risk surgery patient for preoperative evaluation within 30 days preceding their low-risk non-cardiac surgery? Low-risk surgery is defined as cardiac or myocardial infarction less than 1%, including (but not limited to) endoscopic pr ocedures, superficial procedures, cataract surgery, and excisional breast surgery: Answer: No Measure 323 - Is this imaging test performed primarily for the monitoring of an asymptomatic patient who had percutaneous coronary intervention on the visit date or within 2 years of the visit date? An swer: No Measure 324 - Is this imaging test performed primarily for the initial detection and risk assessment on an asymptomatic, low coronary heart disease patient? Low CHD risk definition = clinicians should consider the maximum number of available patient factors used to estimate risk based on [place] (A TP III criteria), typically age, gender, diabetes, smoking status, and use of blood pressure medicati on, and integrate age appropriate estimates for missing elements, such as LDL or standard blood press ure. Answer: No Reviewed by: Martha Cruz MD, PhD on 01/08/2022 5:10 PM PST Approved by: Martha Cruz MD, PhD on 01/08/2022 5:10 PM PST Station ID: [id number]
== END 2022-01-08 12:17 | disposition home or self-care (01) ==
LOC: DI 12:16
PROVIDERS: ATTEND Internal Medicine
DX: R94.39 Abnormal result of other cardiovascular function study (principal)
CPT/HCPCS: 78452; 93016; 93017; 93018; A9500; J2785

== ENCOUNTER 2022-05-27 09:59 | Outpatient (CLI) | payer MEDICARE, OTHER ==
--- NOTE | 2022-05-27 16:15 | Mammography Report ---
UNILATERAL LEFT DIGITAL DIAGNOSTIC MAMMOGRAM 3D/2D: 05/27/2022 CLINICAL: Patient returns for a 6 month follow up of the left breast. Post biopsy. Comparison is made to exams dated: 08/19/2021 stereotactic biopsy, 08/06/2021 mammogram, 01/15/2021 ma mmogram, 08/08/2020 mammogram, and 12/01/2019 mammogram - [facility]. The tissue of left breast is heterogeneously dense. This may lower the sensitivity of mammography. There are multiple fine and punctate calcifications in the left breast central to the nipple anterior depth. These are partially removed and there is a biopsy clip now associated with the calcification s. There are also some new coarse calcifications in the immediate area, likely reactionary to recent biopsy. No other significant masses or calcifications are seen in the breast. IMPRESSION: BENIGN The calcifications are stable on mammogram and have been biopsy proven to be benign. There are benign coarse calcifications from recent biopsy. There is no mammographic evidence of malignancy. Return to annual mammogram screening schedule is recommended. Findings and recommendations were conveyed to t he patient at time of exam. Based on the Tyrer Cuzick model (a risk assessment model) the patients lifetime risk is % and her 10 year risk is %. According to the ACR, ACS, and NCCN guidelines, an annual breast MRI exam along with mammogram is recommended if the patients lifetime risk is 20% or greater. This exam was interpreted at Station ID: [id number]. NOTE: For mammograms, a report in lay terms will be sent to the patient. Approximately 15% of breast malignancies will not be visualized mammographically. In the management of a palpable breast mass, a negative mammogram must not discourage biopsy of a clinically suspicious lesion. Electronically Signed By: Malou haynes/:05/27/2022 12:39:03 ACR BI-RADS Category 2: Benign Finding(s) 3342F PARENCHYMAL PATTERN: (D) - The breast(s) demonstrate(s) heterogeneously dense fibroglandular parenchy ma. BI-RADS CATEGORY: (2) - 2 RECOMMENDATION: (ANNUAL) - Recommend routine annual screening mammography. [id number] return to screening LATERALITY: (B)
== END 2022-05-27 10:00 | disposition home or self-care (01) ==
LOC: DI 09:59
PROVIDERS: ATTEND Internal Medicine
DX: R92.1 Mammographic calcification found on diagnostic imaging of breast (principal)

== ENCOUNTER 2022-08-21 12:11 | Outpatient (CLI) | payer MEDICARE, OTHER ==
[2022-08-21 17:59] LABS: BASOPHILS % (AUTO) 0.8 %; EOSINOPHILS # (AUTO) 0.2 10^3/uL (0.0-0.7); EOSINOPHILS % (AUTO) 3.1 %; HCT - HEMATOCRIT 41.3 % (37.0-47.0); HGB - HEMOGLOBIN 13.1 g/dL (12.0-16.0); LYMPHOCYTES # (AUTO) 1.3 10^3/uL (1.5-3.5); LYMPHOCYTES % (AUTO) 27.3 %; MEAN CORPUSCULAR HEMOGLOBIN 31.2 pg (27.0-31.0); MEAN CORPUSCULAR HGB CONC 31.7 g/dL (32.0-36.0); MEAN CORPUSCULAR VOLUME 98.3 fL (81.0-99.0); MONOCYTES # (AUTO) 0.5 10^3/uL (0.0-1.0); MONOCYTES % (AUTO) 11.1 %; NEUTROPHILS # (AUTO) 2.8 10^3/uL (1.5-6.6); NEUTROPHILS % (AUTO) 57.5 %; PLT - PLATELET COUNT 205 10^3/uL (130-450); RED CELL DISTRIBUTION WIDTH 13.2 % (12.0-15.0); WHITE BLOOD COUNT 4.8 x10^3/uL (4.8-10.8)
[2022-08-21 18:18] LABS: ALBUMIN/GLOBULIN RATIO 1.2 (1.0-2.2); ALKALINE PHOSPHATASE 67 IU/L (42-121); ALT ALANINE AMINOTRANSFERASE 16 IU/L (10-60); AST ASPARTATE AMINOTRANSFERASE 23 IU/L (10-42); BILIRUBIN,TOTAL 0.9 mg/dL (0.2-1.0); BUN - BLOOD UREA NITROGEN 16 mg/dL (6-20); CALCIUM 9.3 mg/dL (8.5-10.3); CARBON DIOXIDE - CO2 29 mmol/L (21-32); CHLORIDE 97 mmol/L (101-111); CHOL/HDL RATIO 6.2 (<4.4); CHOLESTEROL 420 mg/dL; CREATININE 0.6 mg/dL (0.4-1.0); GFR - MDRD 94 (>89); GLUCOSE 102 mg/dL (70-100); HDL CHOLESTEROL 68 mg/dL; LDL CHOLESTEROL,CALCULATED 334 mg/dL; LDL/HDL RATIO 4.9 (<4.4); POTASSIUM 4.3 mmol/L (3.5-5.0); SODIUM 134 mmol/L (135-145); TOTAL PROTEIN 7.3 g/dL (6.7-8.2); TRIGLYCERIDES 90 mg/dL; VLDL CHOLESTEROL 18 mg/dL
[2022-08-21 18:27] LABS: THYROID STIMULATING HORMONE 2.35 uIU/mL (0.34-5.60)
[2022-08-21 22:02] LABS: ESTIMATED AVERAGE GLUCOSE 114 mg/dL (70-100); HEMOGLOBIN A1c% 5.6 % (4.27-6.07)
== END 2022-08-21 12:12 | disposition home or self-care (01) ==
LOC: LAB.N 12:11
PROVIDERS: ATTEND Internal Medicine
DX: E78.5 Hyperlipidemia, unspecified (principal); R73.01 Impaired fasting glucose; E03.9 Hypothyroidism, unspecified
CPT/HCPCS: 36415; 80053; 80061; 83036; 83721; 84443; 85025

== ENCOUNTER 2023-04-14 09:18 | Outpatient (CLI) | payer MEDICARE, OTHER ==
[2023-04-14 12:19] LABS: BASOPHILS # (AUTO) 0.1 10^3/uL (0.0-0.1); BASOPHILS % (AUTO) 1.4 %; EOSINOPHILS # (AUTO) 0.2 10^3/uL (0.0-0.7); EOSINOPHILS % (AUTO) 4.2 %; HCT - HEMATOCRIT 40.9 % (37.0-47.0); HGB - HEMOGLOBIN 13.2 g/dL (12.0-16.0); LYMPHOCYTES # (AUTO) 1.4 10^3/uL (1.5-3.5); LYMPHOCYTES % (AUTO) 28.7 %; MEAN CORPUSCULAR HEMOGLOBIN 31.4 pg (27.0-31.0); MEAN CORPUSCULAR HGB CONC 32.3 g/dL (32.0-36.0); MEAN CORPUSCULAR VOLUME 97.1 fL (81.0-99.0); MEAN PLATELET VOLUME 10.9 fL (7.9-10.8); MONOCYTES # (AUTO) 0.6 10^3/uL (0.0-1.0); MONOCYTES % (AUTO) 11.9 %; NEUTROPHILS # (AUTO) 2.7 10^3/uL (1.5-6.6); NEUTROPHILS % (AUTO) 53.6 %; PLT - PLATELET COUNT 254 10^3/uL (130-450); RED BLOOD COUNT 4.21 10^6/uL (4.20-5.40); RED CELL DISTRIBUTION WIDTH 13.3 % (12.0-15.0)
[2023-04-14 12:22] LABS: ALBUMIN 4.1 g/dL (3.2-5.5); ALBUMIN/GLOBULIN RATIO 1.2 (1.0-2.2); BILIRUBIN,TOTAL 0.7 mg/dL (0.2-1.0); CALCIUM 9.6 mg/dL (8.5-10.3); CREATININE 0.7 mg/dL (0.4-1.0); POTASSIUM 4.6 mmol/L (3.5-5.0); TOTAL PROTEIN 7.4 g/dL (6.7-8.2)
[2023-04-14 12:36] LABS: THYROID STIMULATING HORMONE 9.45 uIU/mL (0.34-5.60)
[2023-04-14 13:00] LABS: ESTIMATED AVERAGE GLUCOSE 120 mg/dL (70-100); HEMOGLOBIN A1c% 5.8 % (4.27-6.07)
[2023-04-14 13:25] LABS: FREE T4 (FREE THYROXINE) 1.03 ng/dL (0.58-1.64)
== END 2023-04-14 09:19 | disposition home or self-care (01) ==
LOC: LAB.N 09:18
PROVIDERS: ATTEND Internal Medicine
DX: E03.9 Hypothyroidism, unspecified (principal); R73.01 Impaired fasting glucose; R53.83 Other fatigue
CPT/HCPCS: 36415; 80053; 83036; 84439; 84443; 85025